=== PATIENT | male | born 1965 | race Hispanic/Latino ===

== ENCOUNTER 2017-09-30 14:18 | Inpatient (IN) | payer MEDICARE ==
[2017-09-30] MEDS ORDERED: Famotidine 20mg/50ml 20 MG/50 ML BAG IVPB STA (14:32)
--- NOTE | 2017-09-30 14:43 | ED PDOC ---
Arrival/HPI - General Time Seen by Provider: 09/30/17 14:19 Historian: Patient - History of Present Illness Narrative History of Present Illness (Text): 09/30/17 14:37 A 52 year old male, whose past medical history includes ETOH use and depression , presents to the emergency department with chest tightness and tremors. The patient admits that his last drink was yesterday and he states that he did want to harm himself and used a knife/razor to cut his neck. The patient notes his chest feels tight with a burning pain coming from the epigastric region into the chest with mild nausea. He is unsure if he hit his head or not. The patient denies any homicidal ideation, diarrhea, vomiting, or any other complaints at this time. Time/Duration: 24 hours Symptom Onset: Gradual Symptom Course: Other Quality: Tightness, Burning Activities at Onset: Emotional Upset Context: Home, Other Past Medical History - Provider Review Nursing Documentation Reviewed: Yes Family/Social History - Physician Review Nursing Documentation Reviewed: Yes Family/Social History: No Known Family HX Allergies/Home Meds Allergies/Adverse Reactions: Allergies No Known Allergies Allergy (Unverified 09/30/17 14:30) Home Medications: Home Meds Medication Instructions Recorded Confirmed No Known Home Med 09/30/17 09/30/17 Review of Systems - Physician Review All systems were reviewed & negative as marked: Yes - Review of Systems Cardiovascular: Chest Pain Gastrointestinal: Abdominal Pain (epigastric burning ), Nausea. absent: Diarrhea, Vomiting Psychiatric: Depression, Suicidal Ideation Physical Exam Vital Signs Reviewed: Yes Vital Signs Temp Pulse Resp BP Pulse Ox 09/30/17 16:12 105 H 17 125/73 95 09/30/17 15:06 97.9 F 111 H 18 90/50 L 95 Appearance: Positive for: Other (ETOH on breath/slurred speech) - Systems Exam Head: Present: Atraumatic, Normocephalic Pupils: Present: PERRL Extroacular Muscles: Present: EOMI Conjunctiva: Present: Normal Mouth: Present: Moist Mucous Membranes Neck: Present: Normal Range of Motion, Other (razor harry with dry red blood no lacerations or swelling/hemotoma ) Respiratory/Chest: Present: Clear to Auscultation, Good Air Exchange. No: Respiratory Distress, Accessory Muscle Use Cardiovascular: Present: Regular Rate and Rhythm, Normal S1, S2. No: Murmurs Abdomen: Present: Tenderness (epigastric tenderness ), Normal Bowel Sounds. No : Distention, Peritoneal Signs Back: Present: Normal Inspection Upper Extremity: Present: Normal Inspection. No: Cyanosis, Edema Lower Extremity: Present: Normal Inspection. No: Edema Neurological: Present: GCS=15, CN II-XII Intact, Speech Normal Skin: Present: Warm, Dry, Normal Color. No: Rashes Psychiatric: Present: Alert, Oriented x 3, Normal Insight, Normal Concentration Medical Decision Making ED Course and Treatment: 09/30/17 14:53 Impression: A 52 year old male with epigastric pain and suicidal ideation. Differential Diagnosis included but are not limited to: Alcohol Gastritis/ Reflux, Suicidal Ideation with Attempt Plan: -- Head CT -- EKG -- Labs -- Chest X-ray -- Ativan, Zofran, Pepcid, TDap -- Fingerstick -- Reassess and disposition Progress Notes: EKG: Ordered, reviewed, and independently interpreted the EKG. Rate : 112 BPM Rhythm : Sinus Tachycardia Interpretation : No ST-segment elevations or depressions, no T-wave inversions, normal intervals. Comparison : No previous EKG for comparison. 09/30/17 16:23 CXR normal and NAD. Hypokalemia treated with PO potassium. Patient is medically cleared for psych evaluation and possible admission. 09/30/17 18:13 PROCEDURE: CT HEAD WITHOUT CONTRAST. IMPRESSION: No acute intracranial abnormalities. No significant findings to account for the clinical presentation. 09/30/17 18:41 Case was discussed with PES who will admit patient to Dr. Christine Mosqueda for Suicidal ideation/attempt, MDD and Alcohol dependence. WINGWA ordered. - Lab Interpretations Lab Results: 09/30/17 15:00 09/30/17 15:00 Lab Results 09/30/17 15:30: Alcohol, Quantitative 266 H 09/30/17 15:30: Salicylates < 1 L, Acetaminophen < 10.0 L 09/30/17 15:08: POC Glucose (mg/dL) 107 09/30/17 15:00: Sodium 150 H, Potassium 3.4 L, Chloride 108 H, Carbon Dioxide 27 , Anion Gap 18, BUN 15, Creatinine 0.6 L, Est GFR ( Amer) > 60, Est GFR ( Non-Af Amer) > 60, Random Glucose 117 H, Calcium 10.1, Magnesium 1.8, Total Bilirubin 0.2, AST 38, ALT 35, Alkaline Phosphatase 47, Lactate Dehydrogenase 485, Total Creatine Kinase 149, Troponin I < 0.01, Total Protein 7.1, Albumin 4.1, Globulin 3.0, Albumin/Globulin Ratio 1.4, Lipase 66 09/30/17 15:00: WBC 8.9, RBC 4.60, Hgb 14.7, Hct 43.0, MCV 93.5, MCH 32.0, MCHC 34.2, RDW 14.3, Plt Count 402, MPV 9.3, Gran % 58.6, Lymph % (Auto) 33.8, [place] % (Auto) 6.0, Eos % (Auto) 1.5, Baso % (Auto) 0.1, Gran # 5.19, Lymph # (Auto) 3.0, [place] # (Auto) 0.5, Eos # (Auto) 0.1, Baso # (Auto) 0.01 - RAD Interpretation Radiology Orders: 09/30/17 14:31 CHEST PORTABLE [RAD] Stat 09/30/17 14:49 HEAD W/O CONTRAST [CT] Stat - Medication Orders Current Medication Orders: Discontinued Medications Famotidine (Pepcid 20mg/50ml Premix) 20 mg in 50 mls @ 100 mls/hr IVPB STAT STA Stop: 09/30/17 15:01 Last Admin: 09/30/17 15:10 Dose: 100 mls/hr eMAR Start Stop Document 09/30/17 15:10 ROZINA (Rec: 09/30/17 15:13 ROZINA [id number]) Intravenous Solution Start Date 09/30/17 Start Time 15:10 End Date 09/30/17 End time 15:40 Total Infusion Time 30 Multivitamins/Vitamin C 10 ml/Thiamine HCl 100 mg/ Folic Acid 1 mg/ Dextrose 1, 011.2 mls @ 1,000 mls/hr IV .Q1H1M ONE Stop: 09/30/17 17:24 Last Admin: 09/30/17 17:27 Dose: 1,000 mls/hr eMAR Start Stop Document 09/30/17 17:27 ROZINA (Rec: 09/30/17 17:29 ROZINA [id number]) Intravenous Solution Start Date 09/30/17 Start Time 17:29 End Date 09/30/17 End time 18:29 Total Infusion Time 60 Sodium Chloride (Sodium Chloride 0.9%) 1,000 mls @ 999 mls/hr IV .Q1H1M STA Stop: 09/30/17 17:24 Last Admin: 09/30/17 16:32 Dose: 999 mls/hr eMAR Start Stop Document 09/30/17 16:32 ROZINA (Rec: 09/30/17 16:35 ROZINA [id number]) Intravenous Solution Start Date 09/30/17 Start Time 16:35 End Date 09/30/17 End time 17:35 Total Infusion Time 60 Lorazepam (Ativan) 1 mg IVP ONCE ONE PRN Reason: Protocol Stop: 09/30/17 14:33 Last Admin: 09/30/17 15:14 Dose: 1 mg IVP Administration Document 09/30/17 15:14 ROZINA (Rec: 09/30/17 15:14 ROZINA [id number]) Charges for Administration # of IVP Administrations 1 Ondansetron HCl (Zofran Inj) 4 mg IVP STAT STA Stop: 09/30/17 14:33 Last Admin: 09/30/17 15:13 Dose: 4 mg IVP Administration Document 09/30/17 15:13 ROZINA (Rec: 09/30/17 15:13 ROZINA [id number]) Charges for Administration # of IVP Administrations 1 Potassium Chloride (K-Dur 20 Meq Er Tab) 40 meq PO STAT STA Stop: 09/30/17 15:55 Last Admin: 09/30/17 16:21 Dose: 40 meq Tetanus/Reduced Diphtheria/Acell Pertussis (Boostrix Vaccine Inj) 0.5 ml IM .ONCE ONE Stop: 09/30/17 14:50 Last Admin: 09/30/17 16:20 Dose: 0.5 ml MAR Immunization Data Document 09/30/17 16:20 LA (Rec: 09/30/17 16:20 LA [id number]) Immunization Data Vaccine Information Sheet Given Yes Immunization Registry Document 09/30/17 16:20 LA (Rec: 09/30/17 16:20 SHARON [id number]) Immunization Registry Consent Date 05/13/17 - Scribe Statement The provider has reviewed the documentation as recorded by the Oscaribtera Rosario Provider Scribe Attestation: All medical record entries made by the Scribe were at my direction and personally dictated by me. I have reviewed the chart and agree that the record accurately reflects my personal performance of the history, physical exam, medical decision making, and the department course for this patient. I have also personally directed, reviewed, and agree with the discharge instructions and disposition. Disposition/Present on Arrival - Present on Arrival Any Indicators Present on Arrival: No - Disposition Have Diagnosis and Disposition been Completed?: Yes Diagnosis: Suicide attempt, Alcohol dependence Disposition Time: 18:42 Patient Plan: Admission Condition: GUARDED Referrals: PCP,NO [Primary Care Provider] - Follow up with primary
[2017-09-30] MEDS ORDERED: TDAP Vaccine 0.5 mL Syr IM ONE (14:49)
[2017-09-30 15:07] VITALS: O2SAT 95
--- NOTE | 2017-09-30 15:27 | RAD ---
HISTORY: chest pain COMPARISON: No prior. FINDINGS: LUNGS: No active pulmonary disease. PLEURA: No significant pleural effusion identified, no pneumothorax apparent. CARDIOVASCULAR: Normal. OSSEOUS STRUCTURES: No significant abnormalities. VISUALIZED UPPER ABDOMEN: Normal. OTHER FINDINGS: None. IMPRESSION: No active disease.
[2017-09-30 15:41] LABS: BASO # 0.01 K/mm3 (0.0-2.0); BASO % 0.1 % (0.0-3.0); EOS # 0.1 (0.0-0.7); EOS % 1.5 % (1.5-5.0); GRAN # 5.19 (1.4-6.5); GRAN % 58.6 % (50.0-68.0); HEMOGLOBIN 14.7 g/dL (14.0-18.0); LYMPH % 33.8 % (22.0-35.0); MEAN CELL VOLUME 93.5 fl (80.0-105.0); MEAN CORPUSCULAR HGB CONC 34.2 g/dl (31.0-37.0); MEAN PLATELET VOLUME 9.3 fl (7.0-11.0); MONO # 0.5 (0.1-0.6); RBC 4.6 10^6/uL (3.5-6.1); RED CELL DISTRIBUTION WIDTH 14.3 % (11.5-14.5); WHITE BLOOD COUNT 8.9 10^3/ul (4.5-11.0)
[2017-09-30 15:49] LABS: ALB/GLOB RATIO 1.4 (1.1-1.8); ALBUMIN 4.1 g/dL (3.0-4.8); ALT/SGPT 35 U/L (7-56); AST/SGOT 38 U/L (17-59); BLOOD UREA NITROGEN 15 mg/dL (7-21); CALCIUM 10.1 mg/dL (8.4-10.5); GFR AFRICAN-AMERICAN > 60; GFR NON-AFRICAN AMERICAN > 60; LIPASE 66 U/L (23-300)
[2017-09-30] MEDS ORDERED: Potassium Chloride 20 mEq ER Tab PO STA (15:54)
[2017-09-30 16:00] LABS: TROPONIN I < 0.01 ng/mL
[2017-09-30] MEDS ORDERED: Sodium Chloride 0.9% 1,000 ML IV STA (16:24)
[2017-09-30] MEDS ORDERED: Multivitamin (MVI) 10 ML, Thiamine 100 MG, Folic Acid 1 MG in Dextrose 5% In Water 1,00... IV ONE (16:24)
[2017-09-30 16:43] LABS: ACETAMINOPHEN < 10.0 ug/ml (10.0-20.0); SALICYLATE < 1 mg/dL (2.0-20.0)
--- NOTE | 2017-09-30 17:35 | CT ---
PROCEDURE: CT HEAD WITHOUT CONTRAST. HISTORY: poss head injury r/o ich COMPARISON: None available. TECHNIQUE: Axial computed tomography images were obtained through the head/brain without intravenous contrast. Radiation dose: Total exam DLP = 704.06 mGy-cm. This CT exam was performed using one or more of the following dose reduction techniques: Automated exposure control, adjustment of the mA and/or kV according to patient size, and/or use of iterative reconstruction technique. FINDINGS: HEMORRHAGE: No intracranial hemorrhage. BRAIN: No mass effect or edema. No atrophy or chronic microvascular ischemic changes. VENTRICLES: Moderate ventricular dilatation without obstructing lesion. CALVARIUM: Unremarkable. PARANASAL SINUSES: Unremarkable as visualized. No significant inflammatory changes. MASTOID AIR CELLS: Unremarkable as visualized. No inflammatory changes. OTHER FINDINGS: None. IMPRESSION: No acute intracranial abnormalities. No significant findings to account for the clinical presentation.
[2017-09-30] MEDS ORDERED: Magnesium Hydroxide Susp 30 ml UD PO PRN (20:43)
[2017-09-30] MEDS ORDERED: Alum-Mag Hydrox-Simethicone Susp (30 mL) PO PRN (20:43)
--- NOTE | 2017-10-01 05:17 | PCM.BM ---
<Duarte Parsons O - Last Filed: 10/01/17 05:15> Treatment Plan Problems - Problems identified on initial assessmt Sad mood Date Initiated: 09/30/17 Time Initiated: 22:00 Assessment reference: NA Status: Active Priority: 1 Treatment assets and liabiliti Patient Assests: cooperative, ADL independent, physically healthy, good past tx response Patient Liabilities: live alone, substance abuse - Milieu Protocol Maintain good personal hygiene: daily Encourage regular showers, daily Remind patient to perform daily oral care, daily Assist patient to perform ADL's Maintain personal safety: daily Educate patient to report safety concerns to staff, daily Monitor environment for contraband/sharps Medication safety: Monitor for expected outcome, potential side effects: daily, Assess barriers to learning: daily, Assess readiness for medication education: daily Family Contact Family involvement: Patient does not wish Family/SO involvement Family contact: Patient agrees to contact - Goals for Treatment Patient goals for treatment: To feel better Discharge/Continuing Care - Education Needs Education Needs: Patient Medication, Patient Diagnosis/Disease Process, Patient Coping Skills - Discharge Discharge Criteria: Free of Suicidal thoughts <Christine Mosqueda A - Last Filed: 10/01/17 09:02> - Diagnosis (1) Alcohol use disorder Status: Acute Interventions: 10/01/17 09:02 Monitoring withdrawal symptoms Medical detoxification Pharmacotherapy for alcohol/benzos/opioid dependence Maintaining sobriety Relapse prevention Possible rehabilitation Motivational interviewing 12-step programs: AA meetings (2) MDD (major depressive disorder) Status: Acute Interventions: 10/01/17 09:02 Psychoeducation Psychopharmacology/adjustment of medications as needed/ monitoring possible side effects Evaluate pt on daily basis Compliance with medications and follow up appointments Suicide and homicide risk assessment and prevention Relapse prevention Reduction of symptoms Improve functional status Family involvement As outpatient: cognitive behavioral therapy
[2017-10-01 07:51] VITALS: RESP 20
[2017-10-01 08:24] LABS: GLUCOSE,FASTING 98 mg/dL (65-110); HDL CHOLESTEROL 60 mg/dL (29-60)
[2017-10-01 08:35] LABS: LDL CHOLESTEROL 67 mg/dL (0-129)
[2017-10-01] MEDS: Multivitamin Therapeutic Tab PO SCH (08:51)
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
--- NOTE | 2017-10-01 15:06 | CARD ---
APPROVED REPORT EKG Measurement Heart [id number] <Conclusion> Sinus tachycardia Otherwise normal ECG
[2017-10-02 07:35] VITALS: BP 113/64; PULSE 114; TEMP 98.7
[2017-10-02 09:39] LABS: BASO # 0.01 K/mm3 (0.0-2.0); BASO % 0.1 % (0.0-3.0); EOS % 0.1 % (1.5-5.0); GRAN # 10.62 (1.4-6.5); GRAN % 91.4 % (50.0-68.0); HEMOGLOBIN 15.3 g/dL (14.0-18.0); LYMPH # 0.7 (1.2-3.4); LYMPH % 6.3 % (22.0-35.0); MEAN CELL VOLUME 91.1 fl (80.0-105.0); MEAN CORPUSCULAR HEMOGLOBIN 32.3 pg (25.0-35.0); MEAN CORPUSCULAR HGB CONC 35.4 g/dl (31.0-37.0); MEAN PLATELET VOLUME 9.1 fl (7.0-11.0); MONO # 0.2 (0.1-0.6); MONO % 2.1 % (1.0-6.0); PLATELET COUNT 356 10^3/uL (120.0-450.0); RBC 4.74 10^6/uL (3.5-6.1); RED CELL DISTRIBUTION WIDTH 13.8 % (11.5-14.5); WHITE BLOOD COUNT 11.6 10^3/ul (4.5-11.0)
[2017-10-02] MEDS ORDERED: Pantoprazole 40 mg EC Tab PO SCH (09:45)
[2017-10-02 09:49] LABS: ALB/GLOB RATIO 1.4 (1.1-1.8); ALBUMIN 4.3 g/dL (3.0-4.8); ALT/SGPT 35 U/L (7-56); AST/SGOT 29 U/L (17-59); BLOOD UREA NITROGEN 14 mg/dL (7-21); CALCIUM 9.9 mg/dL (8.4-10.5); GFR AFRICAN-AMERICAN > 60; GFR NON-AFRICAN AMERICAN > 60
[2017-10-02 10:30] LABS: LYMPHOCYTE 7 % (22.0-35.0); MONOCYTE 1 % (1.0-6.0); NEUTROPHIL 92 % (50.0-70.0); PLATELET ESTIMATE NORMAL (NORMAL)
[2017-10-02] MEDS: Multivitamin Therapeutic Tab PO SCH (12:43)
--- NOTE | 2017-10-02 16:22 | PN ---
DATE: 10/02/2017 SUBJECTIVE: The patient is admitted in the Behavioral Care Unit under Dr. King, she is his psychiatrist. The patient had presented with epigastric discomfort, radiating into the left side of the chest. Evaluation by EKG, the patient did not have any acute myocardial infarction or ischemic event at that time. The patient was admitted to the Behavioral Care Unit for observation and treatment. The patient has a past history of chest pain, vomiting, eructation, reflux. The patient has a past history of gastritis. The patient has a history of depression. He also has history of suicidal tendency. On examination this morning, the patient is lying in bed. He complains of some discomfort in the left side of the chest and in the epigastric area. 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 His appendicular skeleton is comparatively short with short hands. PAST SURGICAL HISTORY: None. The patient has been treated for depression in the past. ALLERGIES: THE PATIENT HAS NO KNOWN ALLERGIES ACCORDING TO THE ER REPORT. PHYSICAL EXAMINATION: VITAL SIGNS: His pulse is 114, blood pressure is 113/64, respirations are 20, O2 sat is 95% of O2 on room air. HEENT: The patient's head is normocephalic. NECK: The thyroid is not enlarged. The neck is short. The JVP is flat. LUNGS: Trachea is central. Breath sounds are vesicular. No adventitious sounds. HEART: Normal sinus rhythm. S1 and S2 present. No murmurs heard. ABDOMEN: Soft. Liver and spleen not palpable. Tenderness in the epigastric area noted. The patient has no rebound tenderness. No masses. CENTRAL NERVOUS SYSTEM: The patient is conscious, rational, oriented. Answers all questions. The patient is one of five siblings. He is evaluated for possible myocardial ischemic event. EKG is ordered for the patient and patient done. MEDICATION LIST: Consists of Abilify. The patient is on lorazepam, which is Ativan . The patient is on thiamine, multivitamin, Remeron, pantoprazole, . The patient is also on Zofran for nausea and vomiting. LABORATORY DATA: The white count 11,600; differential shows a shift to the left. The patient's chemistry, the renal functions are within normal limits. The patient's sodium is 136. Albumin and globulin are within normal limits. AST, ALT are normal. The patient's TSH is 0.22, which is low. We will have to measure the T4 levels of this patient. In the mean time, the patient will be kept under observation. EKG will be done and the blood work will be done to look for any changes in the troponin levels. We will follow up very closely. The nurses are going to keep a close eye on the patient. He is still in the Behavioral Care Unit. I spoke to the physician in-charge in the Behavioral Care Unit and notified about the visit and that I will follow up on the case. Ellis Guzman MD
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
--- NOTE | 2017-10-02 19:23 | CARD ---
APPROVED REPORT EKG Measurement Heart [id number] <Conclusion> Sinus tachycardia Otherwise normal ECG
== END 2017-10-02 12:40 | disposition short-term general hospital (02) | DRG 885 ==
LOC: ED 14:18 → ERH 18:31 → PSYC 19:48
PROVIDERS: ADMIT Psychiatry & Neurology Psychiatry; ATTEND Psychiatry & Neurology Psychiatry
PROC: GZ3ZZZZ Medication Management (ICD-10-PCS; principal; 2017-09-30)
DX: F32.3 Major depressive disorder, single episode, severe with psychotic features (principal); R45.851 Suicidal ideations; F10.10 Alcohol abuse, uncomplicated; K21.9 Gastro-esophageal reflux disease without esophagitis; F17.210 Nicotine dependence, cigarettes, uncomplicated; Z81.8 Family history of other mental and behavioral disorders

== ENCOUNTER 2017-10-02 12:28 | Inpatient (IN) | payer MEDICARE ==
[2017-10-02 12:50] VITALS: BMI 33.6
[2017-10-02] MEDS ORDERED: Multivitamin (MVI) 10 ML, Thiamine 100 MG, Folic Acid 1 MG in Sodium Chloride 0.9% 1,00... IV ONE ×2 (12:52→16:46)
--- NOTE | 2017-10-02 12:55 | ED PDOC ---
Arrival/HPI - General Time Seen by Provider: 10/02/17 12:38 Historian: Patient - History of Present Illness Narrative History of Present Illness (Text): 10/02/17 12:40 Dashawn Montiel is a 52 year old male, whose past medical history includes ETOH use, depression, and was recently admitted to the psych floor 2 days ago, who presents to the emergency department sent from psych floor complaining of nausea and vomiting today. Patient notes that his last drink was 2 days ago. Patient sent to emergency department because he is being treated for nausea, vomiting, and alcoholic withdrawal to be admitted to the medical floor. Patient endorses that he smokes 1/2 a pack of cigarettes and drinks about 1/2 point of vodka per day. No other complaints offered at this time. Time/Duration: 4-6 hours Symptom Onset: Gradual Symptom Course: Unchanged Activities at Onset: Light Associated Symptoms (Text): 10/02/17 13:05 Seen in the emergency department 2 days ago for substance abuse and depression with a suicide attempt. Patient was admitted to the psychiatric floor yesterday. He was transferred from the psychiatric floor today for nausea vomiting and alcohol withdrawal for admission to a hospital bed. Past Medical History - Provider Review Nursing Documentation Reviewed: Yes - Infectious Disease Hx of Infectious Diseases: None - Cardiac Hx Cardiac Disorders: No Hx Hypertension: No - Pulmonary Hx Tuberculosis: No - Neurological HX Cerebrovascular Accident: No Hx Seizures: No - Hematological/Oncological Hx Cancer: No - Integumentary Hx Dermatological Disorder: No - Musculoskeletal/Rheumatological Hx Musculoskeletal Disorders: No - Gastrointestinal Hx Gastrointestinal Disorders: No - Genitourinary/Gynecological Hx Sexually Transmitted Diseases: No - Psychiatric Hx Depression: Yes Hx Substance Use: Yes - Anesthesia Hx Anesthesia: No Family/Social History - Physician Review Nursing Documentation Reviewed: Yes Family/Social History: Unknown Family HX Smoking Status: Light Smoker < 10 Cigarettes Daily Hx Alcohol Use: Yes Frequency of alcohol use: Daily Hx Substance Use: Yes Allergies/Home Meds Allergies/Adverse Reactions: Allergies No Known Allergies Allergy (Verified 10/02/17 12:59) Home Medications: Home Meds Medication Instructions Recorded Confirmed No Known Home Med 09/30/17 10/02/17 Review of Systems - Physician Review All systems were reviewed & negative as marked: Yes - Review of Systems Constitutional: absent: Fevers, Night Sweats Eyes: absent: Vision Changes ENT: absent: Hearing Changes Respiratory: absent: SOB, Cough Cardiovascular: absent: Chest Pain Gastrointestinal: Nausea, Vomiting. absent: Abdominal Pain Genitourinary Male: absent: Dysuria Musculoskeletal: absent: Arthralgias Skin: absent: Rash, Pruritis Neurological: absent: Headache Endocrine: absent: Diaphoresis Physical Exam Vital Signs Reviewed: Yes Vital Signs Temp Pulse Resp BP Pulse Ox 10/02/17 13:56 98.1 F 104 H 18 123/53 L 97 Temperature: Afebrile Blood Pressure: Normal Pulse: Regular Respiratory Rate: Normal Appearance: Positive for: Unkept, Other (dwarf, unkept, and foul-smelling) Pain Distress: None Mental Status: Positive for: Alert and Oriented X 3 - Systems Exam Head: Present: Atraumatic, Normocephalic Pupils: Present: PERRL Extroacular Muscles: Present: EOMI Conjunctiva: Present: Normal Mouth: Present: Moist Mucous Membranes Pharnyx: No: ERYTHEMA, EXUDATE, TONSILS ENLARGED Neck: Present: Normal Range of Motion Respiratory/Chest: Present: Decreased Breath Sounds (Lung sounds diminished). No: Tender to Palpation Cardiovascular: Present: Regular Rate and Rhythm, Normal S1, S2. No: Murmurs Abdomen: No: Tenderness, Distention, Peritoneal Signs, Rebound, Guarding Back: Present: Normal Inspection Upper Extremity: Present: Normal Inspection. No: Cyanosis, Edema Lower Extremity: Present: Normal Inspection. No: Edema Neurological: Present: GCS=15, CN II-XII Intact, Speech Normal, Motor Func Grossly Intact Skin: Present: Warm, Dry, Normal Color. No: Rashes Psychiatric: Present: Alert, Oriented x 3, Normal Insight, Normal Concentration , Depressed Mood, Suicidal Ideation Medical Decision Making ED Course and Treatment: 10/02/17 12:56 Impression: 52 year old male sent from psych floor complaining of nausea and vomiting today. Plan: -- EKG -- Chest X-ray -- Labs -- Zofran, Librium, and IV fluids -- Reassess and disposition Prior Visits: Notes and results from previous visits were reviewed. Patient was last seen in the emergency department on 09/30/17 for chest tightness and tremors. Patient was admitted to psychiatry for further evaluation. Progress Notes: 10/02/17 13:07 EKG shows normal sinus rhythm with a sinus arrhythmia rate approximately [address] or T-wave changes 10/02/17 14:[address] Oliveros, who is aware and accepts patient to service. - Lab Interpretations Lab Results: 10/02/17 13:35 10/02/17 13:35 Lab Results 10/02/17 13:35: Alcohol, Quantitative < 10 10/02/17 13:35: Sodium 135, Potassium 4.2, Chloride 100, Carbon Dioxide 23, Anion Gap 17, BUN 14, Creatinine 0.5 L, Est GFR ( Amer) > 60, Est GFR ( Non-Af Amer) > 60, Random Glucose 123 H, Calcium 9.6, Total Bilirubin 0.7, AST 36, ALT 36, Alkaline Phosphatase 44, Lactate Dehydrogenase 435, Total Creatine Kinase 55, Troponin I < 0.01, Total Protein 7.4, Albumin 4.3, Globulin 3.1, Albumin/Globulin Ratio 1.4, Lipase 21 L 10/02/17 13:35: WBC 12.0 H, RBC 4.91, Hgb 15.6, Hct 44.2, MCV 90.0, MCH 31.8, MCHC 35.3, RDW 14.1, Plt Count 391, MPV 9.8, Gran % 92.4 H, Lymph % (Auto) 5.5 L , [place] % (Auto) 2.1, Eos % (Auto) 0.0 L, Baso % (Auto) 0.0, Gran # 11.13 H, Lymph # (Auto) 0.7 L, [place] # (Auto) 0.3, Eos # (Auto) 0.0, Baso # (Auto) 0.00 I have reviewed the lab results: Yes - RAD Interpretation Radiology Orders: 10/02/17 12:51 CHEST PORTABLE [RAD] Stat Chest 1 view shows no infiltrate effusion or cardiomegaly. Reclaimer: Radiologist - Medication Orders Current Medication Orders: Multivitamins/Vitamin C 10 ml/Thiamine HCl 100 mg/ Folic Acid 1 mg/ Sodium Chloride 1,011.2 mls @ 100 mls/hr IV .Q10H7M ONE Stop: 10/02/17 22:58 Last Admin: 10/02/17 13:35 Dose: 100 mls/hr eMAR Start Stop Document 10/02/17 13:35 HI (Rec: 10/02/17 13:55 HI [id number]) Intravenous Solution Start Date 10/02/17 Start Time 13:35 Discontinued Medications Chlordiazepoxide (Librium) 25 mg PO STAT STA PRN Reason: Protocol Stop: 10/02/17 12:53 Last Admin: 10/02/17 13:35 Dose: 25 mg Ondansetron HCl (Zofran Inj) 4 mg IVP ONCE ONE Stop: 10/02/17 12:54 Last Admin: 10/02/17 13:35 Dose: 4 mg IVP Administration Document 10/02/17 13:35 HI (Rec: 10/02/17 13:54 [place] [id number]) Charges for Administration # of IVP Administrations 1 Disposition/Present on Arrival - Present on Arrival Any Indicators Present on Arrival: No History of DVT/PE: No History of Uncontrolled Diabetes: No Urinary Catheter: No History of Decub. Ulcer: No History Surgical Site Infection Following: None - Disposition Have Diagnosis and Disposition been Completed?: Yes Diagnosis: Suicide attempt, Alcohol use disorder, Alcohol dependence, MDD (major depressive disorder), Alcohol withdrawal, Nausea and vomiting Disposition: HOSPITALIZED Disposition Time: 14:26 Patient Plan: Observation, Telemetry Patient Problems: Current Active Problems Problem Status Onset Alcohol dependence Acute Alcohol use disorder Acute Alcohol withdrawal Acute MDD (major depressive disorder) Acute Nausea and vomiting Acute Suicide attempt Acute Condition: GOOD Referrals: PCP,NO [Primary Care Provider] - Follow up with primary
--- NOTE | 2017-10-02 13:19 | RAD ---
HISTORY: admit COMPARISON: 09/30/2017 FINDINGS: LUNGS: No active pulmonary disease. PLEURA: No significant pleural effusion identified, no pneumothorax apparent. CARDIOVASCULAR: Normal. OSSEOUS STRUCTURES: No significant abnormalities. VISUALIZED UPPER ABDOMEN: Normal. OTHER FINDINGS: None. IMPRESSION: No active disease.
[2017-10-02 13:52] LABS: GRAN # 11.13 (1.4-6.5); GRAN % 92.4 % (50.0-68.0); HEMOGLOBIN 15.6 g/dL (14.0-18.0); LYMPH # 0.7 (1.2-3.4); LYMPH % 5.5 % (22.0-35.0); MEAN CORPUSCULAR HEMOGLOBIN 31.8 pg (25.0-35.0); MEAN CORPUSCULAR HGB CONC 35.3 g/dl (31.0-37.0); MEAN PLATELET VOLUME 9.8 fl (7.0-11.0); MONO # 0.3 (0.1-0.6); MONO % 2.1 % (1.0-6.0); RBC 4.91 10^6/uL (3.5-6.1); RED CELL DISTRIBUTION WIDTH 14.1 % (11.5-14.5)
[2017-10-02 14:02] LABS: ALB/GLOB RATIO 1.4 (1.1-1.8); ALBUMIN 4.3 g/dL (3.0-4.8); ALT/SGPT 36 U/L (7-56); AST/SGOT 36 U/L (17-59); BLOOD UREA NITROGEN 14 mg/dL (7-21); CALCIUM 9.6 mg/dL (8.4-10.5); GFR AFRICAN-AMERICAN > 60; GFR NON-AFRICAN AMERICAN > 60; LIPASE 21 U/L (23-300)
[2017-10-02 14:12] LABS: TROPONIN I < 0.01 ng/mL
--- NOTE | 2017-10-02 17:13 | CP.PCM.PN ---
Subjective - Date & Time of Evaluation Date of Evaluation: 10/02/17 Time of Evaluation: 16:55 - Subjective Subjective: House doctor evaluation for chest pain Patient is 52yo M with past medical history of EtOH abuse and depression was sent down from psych to ED for nausea/vomiting. Patient is complaining of chest pain and is noted to be in sinus tachycardia. Other vitals are stable. Patient reports the chest pain is located on the L side of his chest and radiates to the R side. He denies numbness/tingling, fever/chills, nausea/vomiting, vision changes or headache. Troponin was <0.01 x 1. Patient was noted to have tremors. Ativan prn ordered for alcohol withdrawal. Will repeat troponin x 2. PMD was notified and requested for cardiology, Dr. Erwin to be consulted. Antoni Allen PGY2 Objective - Vital Signs/Intake and Output Vital Signs (last 24 hours): Temp Pulse Resp BP Pulse Ox 98.1 F 115 H 18 125/82 98 10/02/17 13:56 10/02/17 15:48 10/02/17 15:48 10/02/17 15:48 10/02/17 15:48 - Medications Medications: Current Medications Chlordiazepoxide (Librium) 25 mg PO Q6 EDGARDO PRN Reason: Protocol Famotidine (Pepcid) 40 mg PO [facility] Multivitamins/Vitamin C 10 ml/Thiamine HCl 100 mg/ Folic Acid 1 mg/ Sodium Chloride 1,011.2 mls @ 100 mls/hr IV .Q10H7M ONE Stop: 10/02/17 22:58 Last Admin: 10/02/17 13:35 Dose: 100 mls/hr Multivitamins/Vitamin C 10 ml/Thiamine HCl 100 mg/ Folic Acid 1 mg/ Sodium Chloride 1,011.2 mls @ 100 mls/hr IV .Q10H7M ONE Stop: 10/03/17 02:52 Lorazepam (Ativan) 1 mg IVP Q6H PRN; Protocol PRN Reason: Agitation Ondansetron HCl (Zofran Inj) 4 mg IVP Q6 PRN PRN Reason: Nausea/Vomiting - Constitutional Appears: No Acute Distress - Head Exam Head Exam: ATRAUMATIC, NORMAL INSPECTION, NORMOCEPHALIC - Eye Exam Eye Exam: Normal appearance Pupil Exam: NORMAL ACCOMODATION, PERRL - ENT Exam ENT Exam: Mucous Membranes Moist - Neck Exam Neck Exam: Full ROM - Respiratory Exam Respiratory Exam: Clear to Ausculation Bilateral, NORMAL BREATHING PATTERN. absent: Rales, Rhonchi, Wheezes - Cardiovascular Exam Cardiovascular Exam: Tachycardia, REGULAR RHYTHM, +S1, +S2. absent: Rubs, Murmur - GI/Abdominal Exam GI & Abdominal Exam: Soft, Normal Bowel Sounds. absent: Tenderness, Mass, Rebound - Extremities Exam Extremities Exam: Full ROM, Normal Capillary Refill. absent: Pedal Edema, Tenderness Additional comments: tremulous in hands - Neurological Exam Neurological Exam: Alert, Awake, CN II-XII Intact, Oriented x3 - Psychiatric Exam Psychiatric exam: Normal Affect, Normal Mood - Skin Skin Exam: Dry, Intact, Warm
[2017-10-02] MEDS ORDERED: Metoprolol 1 mg/ml Inj IVP ONE (17:24)
--- NOTE | 2017-10-02 19:22 | CARD ---
APPROVED REPORT EKG Measurement Heart [id number] <Conclusion> Sinus rhythm with sinus arrhythmia Minimal voltage criteria for LVH, may be normal variant Borderline ECG
--- NOTE | 2017-10-03 01:20 | CP.PCM.PN ---
Subjective - Date & Time of Evaluation Date of Evaluation: 10/03/17 Time of Evaluation: 01:17 - Subjective Subjective: DRAFT Seen earlier , he wanted to sign out AMA. At that time I discussed with and then with Christine Pena. He is on 1:1 watch. Not to be allowed leave. Now at 1:10 AM, he got up from bed, wants to leave. Patient seen at bedside again. Has ativan 1 mg IV due, I have ordered ativan 2 mg IV x1 and 4 point soft restrains prn. Medical record was reviewed earlier. This 52 year old male was admitted to floor earlier in the day time via ER from psych floor for nausea, vomiting, ETOH withdrawal. Has history of depression,suicidal attempt, smoking, ETOH, high BMI. draft---- Objective - Vital Signs/Intake and Output Vital Signs (last 24 hours): Temp Pulse Resp BP Pulse Ox 98.0 F 92 H 21 136/104 H 98 10/03/17 00:01 10/03/17 00:01 10/03/17 00:01 10/03/17 00:01 10/02/17 15:48 - Medications Medications: Current Medications Chlordiazepoxide (Librium) 25 mg PO Q6 EDGARDO PRN Reason: Protocol Last Admin: 10/03/17 00:44 Dose: 25 mg Famotidine (Pepcid) 40 mg PO HS EDGARDO Last Admin: 10/02/17 23:39 Dose: Not Given Multivitamins/Vitamin C 10 ml/Thiamine HCl 100 mg/ Folic Acid 1 mg/ Sodium Chloride 1,011.2 mls @ 100 mls/hr IV .Q10H7M ONE Stop: 10/03/17 02:52 Last Admin: 10/02/17 18:58 Dose: Not Given Lorazepam (Ativan) 1 mg IVP Q6H PRN; Protocol PRN Reason: Agitation Last Admin: 10/02/17 17:13 Dose: 1 mg Lorazepam (Ativan) 2 mg IVP ONCE ONE PRN Reason: Protocol Stop: 10/03/17 01:17 Metoprolol Tartrate (Lopressor) 25 mg PO BID EDGARDO Ondansetron HCl (Zofran Inj) 4 mg IVP Q6 PRN PRN Reason: Nausea/Vomiting - Constitutional Appears: Well, No Acute Distress - Head Exam Head Exam: ATRAUMATIC, NORMAL INSPECTION, NORMOCEPHALIC Additional comments: short person. - Eye Exam Eye Exam: Normal appearance - ENT Exam ENT Exam: Normal External Ear Exam - Neck Exam Neck Exam: Normal Inspection - Respiratory Exam Respiratory Exam: NORMAL BREATHING PATTERN - Cardiovascular Exam Cardiovascular Exam: absent: JVD - GI/Abdominal Exam GI & Abdominal Exam: absent: Distended - Rectal Exam Rectal Exam: Deferred - Exam Additional comments: Deferred. - Extremities Exam Extremities Exam: Normal Inspection - Back Exam Back Exam: NORMAL INSPECTION - Neurological Exam Neurological Exam: Alert, Awake, Oriented x3 - Psychiatric Exam Psychiatric exam: Agitated - Skin Skin Exam: Normal Color Assessment and Plan - Assessment and Plan (Free Text) Assessment: Agitation. Nause,Vomiting. Depression. Alcohol withdrawal. Suicidal attempt history.
[2017-10-03 01:21] LABS: IRON 56 ug/dL (45-180)
[2017-10-03 01:31] LABS: % IRON SATURATION 17 % (20-55); TOTAL IRON BINDING CAPACITY 339 ug/dL (261-462)
[2017-10-03 01:34] LABS: TROPONIN I < 0.01 ng/mL
--- NOTE | 2017-10-03 02:46 | CON ---
DATE: 10/02/2017 REASON FOR CONSULTATION: Cardiac evaluation, chest pain, sinus tachycardia. BRIEF CLINICAL HISTORY: This is a 52-year-old male with past medical history of heavy alcohol abuse and tobacco abuse, came to the emergency room and admitted to the Psych Floor with depression. Patient was complaining of some chest discomfort, epigastric pain, so patient was sent to the ER and admitted to the Telemetry with chest pain. Patient complained of chest pain for two months all the time, does not get worse, no aggravating or relieving factor noted. Mostly, the epigastric pain radiated to the chest. PAST MEDICAL HISTORY: Significant for depression, dwarfism, and achondroplasia. Appendicular skeleton is comparatively short and short hands and short legs. SOCIAL HISTORY: He used to drink half a pint of vodka everyday, most recent drink was five days ago before coming to the hospital three to four days ago. Also smokes half a pack a day. FAMILY HISTORY: Significant for coronary artery disease. Father and mother had OR and . CURRENT MEDICATIONS: Patient not taking any medication at home. Currently, patient is on lorazepam, Librium, IV fluid. REVIEW OF SYSTEMS: As per HPI. PHYSICAL EXAMINATION: As follows, VITAL SIGNS: Temperature afebrile, heart rate 130, blood pressure 145/110. HEENT: PERRLA. Extraocular muscles intact. NECK: Supple. No carotid bruit or thyromegaly. CHEST: Clear to auscultation. HEART: S1, S2, regular. ABDOMEN: Soft. EXTREMITIES: Clubbing and cyanosis negative. LABORATORY DATA: EKG shows sinus tachycardia, no acute ST-T changes noted. Blood workup as follows. WBC 12, hemoglobin 15.0, hematocrit 44.2, platelet count 391. Chemistry shows sodium 135, potassium 4.2, chloride 108, carbon dioxide 20, anion gap of 17, BUN 14, creatinine 0.5. Troponin x2 negative. IMPRESSION: Atypical chest pain most likely secondary to gastritis secondary to alcohol related, history of heavy alcohol abuse, admitting blood alcohol level 266, tobacco abuse, also family history of coronary artery disease. Given the patient's lifestyle and multiple risk factors for coronary artery including family history to suggest, when the patient becomes sober, a stress test before the patient goes home, and we will get lipid profile, TSH and hemoglobin A1c, followup CPK, troponin, and also start beta rush. We will follow with you. Thank you Dr. Oliveros for providing us the opportunity in taking care of the patient, Dashawn Montiel. Katie Ozuna MD
[2017-10-03 06:33] LABS: BASO # 0.01 K/mm3 (0.0-2.0); BASO % 0.1 % (0.0-3.0); EOS # 0.1 (0.0-0.7); EOS % 1.2 % (1.5-5.0); GRAN # 4.63 (1.4-6.5); GRAN % 56.2 % (50.0-68.0); HEMOGLOBIN 13.9 g/dL (14.0-18.0); LYMPH # 2.8 (1.2-3.4); LYMPH % 33.5 % (22.0-35.0); MEAN CELL VOLUME 92.4 fl (80.0-105.0); MEAN CORPUSCULAR HEMOGLOBIN 31.2 pg (25.0-35.0); MEAN CORPUSCULAR HGB CONC 33.7 g/dl (31.0-37.0); MEAN PLATELET VOLUME 9.2 fl (7.0-11.0); MONO # 0.7 (0.1-0.6); RBC 4.46 10^6/uL (3.5-6.1); WHITE BLOOD COUNT 8.2 10^3/ul (4.5-11.0)
--- NOTE | 2017-10-03 06:49 | HP ---
CHIEF COMPLAINTS: Nausea, vomiting. HISTORY OF PRESENT ILLNESS: Mr. Dashawn Montiel is a 52-year-old male with past medical history of ethanol abuse, depression, was recently admitted to the Psych floor [address] Christine Mosqueda with depression and alcohol abuse, who presented to the emergency department, sent from Psych floor, complaining of nausea and vomiting. Patient noticed that his last drink was 2 days ago. Patient was sent to the emergency department because he is being treated for nausea and vomiting and alcohol withdrawal, now wanted to be admitted on medical floor. Patient endorsed that he smokes half a pack of cigarettes and drinks about half pint of vodka every day. No other complaints offered by the patient. Sometimes, feeling of gassy stomach, GERD, dyspepsia. Patient was seen in the emergency room 2 days ago for substance abuse and depression with suicidal attempt. Patient was admitted to the psychiatric floor yesterday. He was transferred from the Psych floor to the emergency room for nausea and vomiting and alcohol withdrawal, sent from emergency room to the medical floor. PAST MEDICAL HISTORY: Depression, substance abuse. FAMILY HISTORY: Father and mother, noncontributory. HABITS: Smoking, less than 10 cigarettes a day. Alcohol, yes. Substance abuse, yes. ALLERGIES: PATIENT IS NOT ALLERGIC WITH ANY MEDICATIONS. HOME MEDICATIONS: Patient did not remember. REVIEW OF SYSTEMS: The patient was seen and examined at the bedside in his room. He is on one-to-one. No fever. No chills. No night sweats. No vision changes. No hearing changes. No shortness of breath or coughing. No chest pain. Complaining about nausea, vomiting and gassy stomach, but no abdominal pain. No dysuria. No arthralgia. No pruritus. No headache. No diaphoresis. PHYSICAL EXAMINATION: VITAL SIGNS: Temperature 98.1, pulse 104, respiratory rate 18, blood pressure 120 /56. Pulse oximetry is 97%. HEENT: Head normocephalic, atraumatic. Eyes: PERRLA. Extraocular muscles intact. Conjunctivae clear. Nose, patent. NECK: Supple. No carotid bruit. No JVD. No thyromegaly. CHEST: Bilaterally symmetrical. HEART: S1, S2 positive. LUNGS: Clear to auscultation. ABDOMEN: Soft. Bowel sounds present. No organomegaly. EXTREMITIES: No edema. No cyanosis. NEUROLOGIC: Patient is awake, alert. Moving all 4 extremities. No focal deficits. LABORATORY DATA: White blood cells 12, hemoglobin 15.2, hematocrit 44.2, platelets 351. Sodium 135, potassium 4.2, BUN 14, creatinine 0.5, and glucose 123. ASSESSMENT AND PLAN: Mr. Dashawn Montiel is a 52-year-old male with leukocytosis, hyperglycemia, was admitted in the Psych floor for suicidal attempts, alcohol abuse, alcohol dependency, major depressive disorder, alcohol withdrawals, now has nausea, vomiting, gastroesophageal reflux disease, and dyspepsia. Patient is admitted. Psych consult called with Dr. Christine Mosqueda. Patient is on one-to-one because of suicidal attempts. We will start banana bag and Librium given in the emergency room. Gastric and deep venous thrombosis prophylaxes. Repeat labs. Scarlett Oliveros MD MTDD
[2017-10-03 06:55] LABS: TROPONIN I < 0.01 ng/mL
[2017-10-03 07:05] LABS: LDL CHOLESTEROL 73 mg/dL (0-129)
[2017-10-03 07:07] LABS: ALB/GLOB RATIO 1.3 (1.1-1.8); ALBUMIN 3.9 g/dL (3.0-4.8); ALT/SGPT 28 U/L (7-56); AST/SGOT 28 U/L (17-59); BLOOD UREA NITROGEN 13 mg/dL (7-21); CALCIUM 9.6 mg/dL (8.4-10.5); GFR AFRICAN-AMERICAN > 60; GFR NON-AFRICAN AMERICAN > 60; HDL CHOLESTEROL 53 mg/dL (29-60)
--- NOTE | 2017-10-03 07:43 | CP.PCM.CON ---
<Bladimir Madrid - Last Filed: 10/03/17 10:53> History of Present Illness - History of Present Illness History of Present Illness: PGY4 Initial GI Consultation Dashawn Montiel is a 52 year old male w/ hx of ETOH use, depression, and was recently admitted to the psych floor 3 days ago. He was sent to the Er from psych for nausea and vomiting. He currently denies any abd pain. He has a hx of intermittent GERD, which is normally resolved with the use of TUMs or maalox. Patient notes that his last drink was 2 days ago. Patient sent to emergency department because he is being treated for nausea, vomiting, and possible alcoholic withdrawal to be admitted to the medical floor. He currently denies any abd pain, nausea, vomiting. Last Bm was yesterday without difficulty. Denies any weightloss, NSAID use. fever, chills or diaphoresis PMHX: ETOH use, depression, GERD PSHx: Denies Social hx:Patient endorses that he smokes 1/2 a pack of cigarettes and drinks about 1/2 point of vodka per day. Denies rj illicit drugs Endo hx: denies Family hx: reviewed; denies any hx of colon ca. Liver or pancreas CA ROS: 12 point ROS conducted, neg other than above Past Patient History - Infectious Disease Hx of Infectious Diseases: None - Past Social History Smoking Status: Current Some Days Smoker - CARDIAC Hx Cardiac Disorders: No Hx Angina: No Hx Cardia Arrhythmia: No Hx Circulatory Problems: No Hx Congestive Heart Failure: No Hx Heart Murmur: No Hx Heart Transplant: No Hx Hypercholesterolemia: No Hx Hypertension: No Hx Internal Defibrillator: No Hx Mitral Valve Prolapse: No Hx Pacemaker: No Hx Peripheral Edema: No Hx Peripheral Vascular Disease: No - PULMONARY Hx Tuberculosis: No - NEUROLOGICAL HX Cerebrovascular Accident: No Hx Seizures: No - HEMATOLOGICAL/ONCOLOGICAL Hx Cancer: No - INTEGUMENTARY Hx Dermatological Problems: No - MUSCULOSKELETAL/RHEUMATOLOGICAL Hx Falls: No - GASTROINTESTINAL Hx Gastrointestinal Disorders: No - GENITOURINARY/GYNECOLOGICAL Hx Sexually Transmitted Disorders: No - PSYCHIATRIC Hx Substance Use: Yes - SURGICAL HISTORY Hx Cardiac Catheterization: No Hx Coronary Stent: No - ANESTHESIA Hx Anesthesia: No Meds Allergies/Adverse Reactions: Allergies Allergy/AdvReac Type Severity Reaction Status Date / Time No Known Allergies Allergy Verified 10/02/17 12:59 - Medications Medications: Current Medications Chlordiazepoxide (Librium) 25 mg PO Q6 EDGARDO PRN Reason: Protocol Last Admin: 10/03/17 05:45 Dose: 25 mg Famotidine (Pepcid) 40 mg PO HS EDGARDO Last Admin: 10/02/17 23:39 Dose: Not Given Lorazepam (Ativan) 1 mg IVP Q6H PRN; Protocol PRN Reason: Agitation Last Admin: 10/03/17 07:01 Dose: 1 mg Metoprolol Tartrate (Lopressor) 25 mg PO BID EDGARDO Ondansetron HCl (Zofran Inj) 4 mg IVP Q6 PRN PRN Reason: Nausea/Vomiting Physical Exam - Constitutional Appears: Well, No Acute Distress - Head Exam Head Exam: ATRAUMATIC, NORMOCEPHALIC - Eye Exam Eye Exam: Normal appearance - ENT Exam ENT Exam: Mucous Membranes Moist, Normal Exam - Neck Exam Neck exam: Positive for: Normal Inspection - Respiratory Exam Respiratory Exam: Clear to Auscultation Bilateral, NORMAL BREATHING PATTERN. absent: Rales, Rhonchi, Wheezes, Respiratory Distress - Cardiovascular Exam Cardiovascular Exam: REGULAR RHYTHM, +S1, +S2 - GI/Abdominal Exam GI & Abdominal Exam: Normal Bowel Sounds, Soft. absent: Guarding, Organomegaly , Rebound, Rigid, Tenderness - Extremities Exam Extremities exam: Negative for: joint swelling, pedal edema - Neurological Exam Neurological exam: Alert, Oriented x3 - Psychiatric Exam Psychiatric exam: Normal Affect, Normal Mood - Skin Skin Exam: Dry, Intact, Normal Color, Warm Results - Vital Signs Recent Vital Signs: Last Vital Signs Temp 98.1 F 10/03/17 06:00 Pulse 86 10/03/17 06:00 Resp 20 10/03/17 06:00 BP 124/85 10/03/17 06:00 Pulse Ox 97 10/03/17 06:00 - Labs Result Diagrams: 10/03/17 06:20 10/03/17 06:20 Labs: Laboratory Results - last 24 hr 10/02/17 10/03/17 10/03/17 17:15 00:45 00:45 WBC RBC Hgb Hct MCV MCH MCHC RDW Plt Count MPV Gran % Lymph % (Auto) Blaine % (Auto) Eos % (Auto) Baso % (Auto) Gran # Lymph # (Auto) Blaine # (Auto) Eos # (Auto) Baso # (Auto) Sodium Potassium Chloride Carbon Dioxide Anion Gap BUN Creatinine Est GFR ( Amer) Est GFR (Non-Af Amer) Random Glucose Calcium Phosphorus Magnesium Iron 56 TIBC 339 % Saturation 17 L Total Bilirubin AST ALT Alkaline Phosphatase Lactate Dehydrogenase 375 Total Creatine Kinase 69 Troponin I < 0.01 < 0.01 Total Protein Albumin Globulin Albumin/Globulin Ratio Triglycerides Cholesterol LDL Cholesterol Direct HDL Cholesterol TSH 3rd Generation 10/03/17 10/03/17 10/03/17 06:20 06:20 06:20 WBC 8.2 D RBC 4.46 Hgb 13.9 L Hct 41.2 L MCV 92.4 MCH 31.2 MCHC 33.7 RDW 14.0 Plt Count 346 MPV 9.2 Gran % 56.2 Lymph % (Auto) 33.5 Blaine % (Auto) 9.0 H Eos % (Auto) 1.2 L Baso % (Auto) 0.1 Gran # 4.63 Lymph # (Auto) 2.8 Blaine # (Auto) 0.7 H Eos # (Auto) 0.1 Baso # (Auto) 0.01 Sodium 141 Potassium 4.0 Chloride 107 Carbon Dioxide 25 Anion Gap 13 BUN 13 Creatinine 0.7 L Est GFR ( Amer) > 60 Est GFR (Non-Af Amer) > 60 Random Glucose 98 Calcium 9.6 Phosphorus 2.6 Magnesium 2.0 Iron TIBC % Saturation Total Bilirubin 0.9 AST 28 ALT 28 Alkaline Phosphatase 43 Lactate Dehydrogenase 387 Total Creatine Kinase 76 Troponin I < 0.01 Total Protein 6.9 Albumin 3.9 Globulin 2.9 Albumin/Globulin Ratio 1.3 Triglycerides 66 Cholesterol 153 LDL Cholesterol Direct 73 HDL Cholesterol 53 TSH 3rd Generation 0.74 Assessment & Plan - Assessment and Plan (Free Text) Assessment: Dashawn Montiel is a 52M w/ hx of depression and alcohol abuse who presents to the ER from the Psych for vomiting and nausea. Nausea/Vomiting GERD Alcohol abuse and dependence Alcohol withdrawl Plan: -temi PRN -supportive care -Pepcid 40mg daily -continue IV fluids -Ativan as per withdrawl protocol -1:1 -discussed alcohol cessation -recommend Colonoscopy as oupt for screening will d/w Dr. Snider <Angel Snider - Last Filed: 10/03/17 19:37> Meds - Medications Medications: Current Medications Chlordiazepoxide (Librium) 25 mg PO Q6 EDGARDO PRN Reason: Protocol Last Admin: 10/03/17 17:23 Dose: 25 mg Famotidine (Pepcid) 40 mg PO HS [facility] Last Admin: 10/02/17 23:39 Dose: Not Given Lorazepam (Ativan) 1 mg IVP Q6H PRN; Protocol PRN Reason: Agitation Last Admin: 10/03/17 07:01 Dose: 1 mg Metoprolol Tartrate (Lopressor) 25 mg PO BID [facility] Last Admin: 10/03/17 17:22 Dose: 25 mg Ondansetron HCl (Zofran Inj) 4 mg IVP Q6 PRN PRN Reason: Nausea/Vomiting Results - Vital Signs Recent Vital Signs: Last Vital Signs Temp 97.9 F 10/03/17 18:00 Pulse 91 H 10/03/17 18:00 Resp 20 10/03/17 18:00 BP 116/71 10/03/17 18:00 Pulse Ox 97 10/03/17 18:00 - Labs Result Diagrams: 10/03/17 06:20 10/03/17 06:20 Attending/Attestation - Attestation I have personally seen and examined this patient.: Yes I have fully participated in the care of the patient.: Yes I have reviewed all pertinent clinical information: Yes Notes (Text): 10/03/17 19:36 52 year old male with h/o etoh abuse, a/w withdrawal. Nausea and vomiting improved. Recommend antiemetics as needed. Recommend PPI daily. Etoh cessation. Will sign off.
[2017-10-03 13:18] LABS: FOLATE > 20.0 ng/mL
--- NOTE | 2017-10-03 13:23 | PN ---
DATE: FOLLOWUP NOTE SUBJECTIVE: The patient was transferred from psychiatric inpatient unit on the medical floor because the patient was not able to tolerate food, was vomiting and was not feeling well. The patient also had alcohol withdrawal syndrome and this database report writer is following the patient on the medical side. As per night report, the patient was agitated. The patient wanted to leave the hospital against medical advice. This database report writer would like to emphasize the fact that the patient was suicidal and cut his neck superficially and this database report writer did not feel like the patient has a capacity to sign himself out. The patient was seen and examined today. The patient presented to be alert, ambulates. The patient is on one to one currently. The patient has episodes of confusion, encircling around the unit, needs constant redirection. The patient has good report with this database report writer. The patient was educated about his diagnosis and potential risk of leaving against medical advice. The patient agreed to comply and complete his treatment here. After medical stabilization, the patient is willing to go back to the psychiatric inpatient unit. Vital signs are stable. Temperature 98.1, pulse is 86, blood pressure 124/85, respirations 20, oxygen saturation is 97. The patient is on Librium 25 mg every 6 hours scheduled, Pepcid, lorazepam as needed, Lopressor, Zofran. The patient got Ativan IM as well as IV hydration yesterday. Labs reviewed. WBC cells were elevated yesterday, today it is trending down. Chemistry reviewed. AST and ALT within normal limits. Lipase is 12, which is low. Toxicology: Alcohol was less than 10. MENTAL STATUS EXAMINATION: The patient presented to be alert, but somewhat confused, intermittent eye contact. Poor hygiene. Speech was monotonic, low volume. Mood described as depressed and hopeless. Affect was constricted. Thought process concrete. Thought content, the patient denied visual, auditory or tactile hallucinations, but the patient has episodes of confusion, most likely is in delirium stage. The patient still reported feeling of hopelessness, contracted for safety. Insight and judgment limited. Impulses are not predictable. IMPRESSION: As per history, the patient has major depressive disorder, anxiety disorder, alcohol use disorder. The patient was transferred from the medical side for alcohol withdrawal delirium as well as nonstop vomiting. PLAN: Continue current medication. Continue current management. The patient is on one-to-one. The patient is not clear to go from the psychiatric standpoint. Gastroenterology saw this patient. Consultation reviewed. The patient will be seen by Dr. Oliveros and the patient's lungs congested that is why Dr. Jain need to be involved and Dr. Ozuna also is involved for cardiac problems. We will follow up and advise accordingly. Thank you very much for letting me participate in care of your patient. Christine Mosqueda MD
--- NOTE | 2017-10-04 05:39 | PN ---
DATE: SUBJECTIVE: The patient was seen and examined on the bedside, looking comfortable, but is on one-to-one, restless, wants to leave against medical advice. Discussion done with house physician. Psychiatrist is on the case. No fever, no chills. No nausea, vomiting or diarrhea. No headache, no dizziness. History of suicidal attempt, smoking, ethanol abuse, high BMI. The patient was admitted actually in the Psychiatric Department for alcoholic behavior, but he started nauseous and vomiting, and transferred to the medical floor. PHYSICAL EXAMINATION VITAL SIGNS: Temperature 98, pulse 92, respiratory rate 21, blood pressure 136/104, pulse oximetry 98. HEENT: Head normocephalic and atraumatic. Eyes, PERRLA. Extraocular muscles intact. Conjunctivae clear. Nose patent. Mucous membrane moist. NECK: Supple. No carotid bruit. No JVD or thyromegaly. CHEST: Bilaterally symmetrical. HEART: S1 and S2 positive. LUNGS: Clear to auscultation. ABDOMEN: Soft. Bowel sounds present. No organomegaly. EXTREMITIES: No edema. No cyanosis. NEUROLOGIC: Patient is awake, alert. Moving all four extremities. No focal deficit. MEDICATIONS: Librium, Pepcid, Ativan, Lopressor, Zofran. LABORATORY DATA: White blood cells 8.2, hemoglobin 13.9, hematocrit 41.2, platelets 346. Sodium 141, potassium 4, BUN 13, creatinine 0.7, glucose 98. ASSESSMENT AND PLAN: Mr. Dashawn Montiel is a 52-year-old male with a history of leukocytosis, improved, now has anemia, iron deficiency, history of ethanol abuse, depression, gastroesophageal reflux disease, dyspepsia, denies usage of nonsteroidal antiinflammatory drugs. Here with gastroenteritis, nausea and vomiting, alcohol abuse, and depression. The patient is on one-to-one. Psychiatry is on the case. Continue present treatment. Repeat labs. We will follow. Scarlett Oliveros MD
--- NOTE | 2017-10-04 07:06 | PN ---
DATE: 10/03/2017 REASON FOR CONSULTATION: Cardiac evaluation, chest pain, sinus tachycardia, alcohol abuse, and tobacco abuse. SUBJECTIVE: The patient denies any shortness of breath, or any palpitations. OBJECTIVE: GENERAL: Not in apparent distress. Patient in the corner of the room is smoking. VITAL SIGNS: Temperature afebrile, heart rate 86, blood pressure 124/85. HEENT: PERRLA, intact. NECK: Supple. No carotid bruit or thyromegaly. CHEST: Clear to auscultation. HEART: S1 and S2, regular. ABDOMEN: Soft. EXTREMITIES: Clubbing and cyanosis negative.. LABORATORY DATA: Blood workup as follows. WBC 8.8, hemoglobin 13.9, hematocrit 41.2, platelet count 346. Chemistry shows sodium 141, potassium 4, chloride 103, carbon dioxide 25, anion gap of 13. BUN 13, creatinine 0.7. Troponin 0.01, negative. IMPRESSION: No noticed, I think it is myocardial infarction. Noticed acute unstable angina, ischemia, tobacco abuse, alcohol abuse, possible alcohol withdrawal, chest pain most likely secondary to gastritis because of multiple risk factor for coronary artery disease. Suggest echo and a stress test. Continue beta-rush. Patient was tachycardic yesterday. Admitting blood alcohol level 266 secondary to alcoholic intoxication, but given multiple risk factors, once the patient is stabilized and become sober, will consider stress test possibly tomorrow. Though the chest pain does not appear to be cardiac and so far troponin's are negative, no evidence for acute myocardial infarction. We will keep n.p.o. after midnight for a stress test in the morning. Katie Ozuna MD
--- NOTE | 2017-10-04 14:50 | PN ---
DATE: 10/04/2017 REASON FOR CONSULTATION: Followup cardiac evaluation, chest pain, sinus tachycardia, alcohol abuse and tobacco abuse. SUBJECTIVE: The patient denies any chest pain, shortness of breath or any palpitation. He refused echo yesterday. He refused a stress test and echo today. PHYSICAL EXAMINATION: GENERAL: Not in apparent distress, one to one. VITAL SIGNS: Temperature afebrile, heart rate 76, blood pressure 117/75. HEENT: PERRLA. Extraocular muscles intact. NECK: Supple. No carotid bruit or thyromegaly. CHEST: Clear to auscultation. HEART: S1 and S2 regular. ABDOMEN: Soft. EXTREMITIES: Clubbing and cyanosis negative. LABORATORY DATA: Blood workup as follows: WBC 8.8, hemoglobin 13.9, hematocrit 41.2, platelet count 346. Chemistry shows sodium 141, potassium 4, chloride , carbon dioxide 25, anion gap of 13. BUN 13, creatinine 0.7. Troponin 0.01. IMPRESSION: No evidence of myocardial infarction. No evidence of ischemia. Alcohol abuse and tobacco abuse. Refused echo and refused stress test. The patient had sinus tachycardia on admission. He was started on Lopressor since the patient is fairly stable. Admitting blood alcohol level was 266 on admission to the Psych floor. RECOMMENDATION: Continue metoprolol. Resume diet. The patient refusing stress test and echo. Again, resume diet, cancel the stress test. The patient is cleared from Cardiology point of view to go back to Psychiatry if needed. We will put in physician nurse communication. The patient is cleared from Cardiology point of view to go to Psych floor. Katie Ozuna MD
--- NOTE | 2017-10-04 17:39 | CP.PCM.PN ---
<Coreen Hoffman - Last Filed: 10/04/17 17:36> Subjective - Date & Time of Evaluation Date of Evaluation: 10/04/17 Time of Evaluation: 11:30 - Subjective Subjective: Chief Complaint: AMS, ETOH withdrawal 52 yr male w/ history of dwarfism, ETOH abuse, depression, GERD, heavy smoker, & subsatance abuse. Admitted to pyschiatric unit on for substance abuse, depression, & suicide attempt. Pt then transfered to medical floor for nausea/vomiting and chest pain. Today, pt seen with 1:1 sitter, confused, and refusing to go for stress test. Pt is a poor historian at this time. Denies any headache, fever, chills, nausea, vomiting, chest pain, shortness of breath, or urinary symptoms. Objective - Vital Signs/Intake and Output Vital Signs (last 24 hours): Temp Pulse Resp BP Pulse Ox 97.8 F 103 H 18 154/65 H 95 10/04/17 05:45 10/04/17 09:09 10/04/17 05:45 10/04/17 09:09 10/04/17 05:45 - Medications Medications: Current Medications Chlordiazepoxide (Librium) 25 mg PO Q8 [facility] PRN Reason: Protocol Last Admin: 10/04/17 14:13 Dose: Not Given Famotidine (Pepcid) 40 mg PO [facility] Last Admin: 10/03/17 21:51 Dose: 40 mg Haloperidol Lactate (Haldol) 0.5 mg IVP Q6 PRN; Protocol PRN Reason: Agitation Lorazepam (Ativan) 0.5 mg IVP Q6 PRN; Protocol PRN Reason: Agitation Last Admin: 10/04/17 11:55 Dose: 0.5 mg Metoprolol Tartrate (Lopressor) 25 mg PO BID [facility] Last Admin: 10/04/17 09:09 Dose: 25 mg Nicotine (Nicoderm Cq) 1 patch TD DAILY [facility] Last Admin: 10/04/17 12:00 Dose: 1 patch Ondansetron HCl (Zofran Inj) 4 mg IVP Q6 PRN PRN Reason: Nausea/Vomiting Quetiapine Fumarate (Seroquel) 25 mg PO [facility] PRN Reason: Protocol - Constitutional Appears: Non-toxic, No Acute Distress - Head Exam Head Exam: ATRAUMATIC, NORMAL INSPECTION, NORMOCEPHALIC - Eye Exam Eye Exam: EOMI, Normal appearance, PERRL Pupil Exam: NORMAL ACCOMODATION, PERRL - ENT Exam ENT Exam: Mucous Membranes Dry - Neck Exam Neck Exam: Full ROM, Normal Inspection. absent: Lymphadenopathy - Respiratory Exam Respiratory Exam: Clear to Ausculation Bilateral, NORMAL BREATHING PATTERN - Cardiovascular Exam Cardiovascular Exam: REGULAR RHYTHM, +S1, +S2. absent: Murmur - GI/Abdominal Exam GI & Abdominal Exam: Soft, Normal Bowel Sounds. absent: Tenderness - Extremities Exam Additional comments: pt has dwarfism - Back Exam Back Exam: NORMAL INSPECTION - Neurological Exam Neurological Exam: Alert, Awake - Psychiatric Exam Psychiatric exam: Anxious - Skin Skin Exam: Dry, Intact, Normal Color, Warm Assessment and Plan (1) Chest pain, atypical Status: Acute (2) Alcohol dependence Status: Acute (3) Alcohol withdrawal Status: Acute (4) MDD (major depressive disorder) Status: Acute (5) Nausea and vomiting Status: Acute (6) Suicide attempt Status: Acute (7) Alcohol use disorder Status: Chronic (8) Leukocytosis Status: Acute (9) Hyperglycemia Status: Acute (10) Dehydration Status: Acute - Assessment and Plan (Free Text) Plan: 1:1 sitter. Tolerating diet. Stress test & ECHO refused by patient, cardiology signed off. Nicotine patch. GI signed off the case, f/u with outpatient colonscopy. VTE/GI prophlyaxis. Consults: Psych - Dr. Mosqueda Cardio - Dr. Erwin GI - Dr. Snider Reviewed: CXR = WNL ECG = BORDERLINE, SR w. SA, minimal voltage critera for LVH, may be normal variant <Scarlett Oliveros - Last Filed: 10/04/17 23:04> Subjective - Subjective Subjective: 52 yr male w/ history of dwarfism, ETOH abuse, depression, GERD, heavy smoker, & subsatance abuse. Admitted to pyschiatric unit on for substance abuse, depression, & suicide attempt. Pt then transfered to medical floor for nausea/vomiting and chest pain. Today, pt seen with 1:1 sitter, confused, and refusing to go for stress test. Pt is a poor historian at this time. Denies any headache, fever, chills, nausea, vomiting, chest pain, shortness of breath, or urinary symptoms.pt is seen and examined at bed side . looking comfortable , agreed all above , d/d with RN ONCOLOGY CLINICAL , will f/u Objective - Vital Signs/Intake and Output Vital Signs (last 24 hours): Temp Pulse Resp BP Pulse Ox 97.6 F 79 20 109/75 97 10/04/17 18:00 10/04/17 18:43 10/04/17 18:00 10/04/17 18:43 10/04/17 18:00 Intake and Output: 10/04/17 10/05/17 18:59 06:59 Intake Total 180 Balance 180 - Medications Medications: Current Medications Chlordiazepoxide (Librium) 25 mg PO Q8 [facility] PRN Reason: Protocol Last Admin: 10/04/17 21:07 Dose: 25 mg Famotidine (Pepcid) 40 mg PO HS [facility] Last Admin: 10/04/17 21:08 Dose: 40 mg Haloperidol Lactate (Haldol) 0.5 mg IVP Q6 PRN; Protocol PRN Reason: Agitation Lorazepam (Ativan) 0.5 mg IVP Q6 PRN; Protocol PRN Reason: Agitation Last Admin: 10/04/17 11:55 Dose: 0.5 mg Metoprolol Tartrate (Lopressor) 25 mg PO BID [facility] Last Admin: 10/04/17 18:43 Dose: 25 mg Nicotine (Nicoderm Cq) 1 patch TD DAILY [facility] Last Admin: 10/04/17 12:00 Dose: 1 patch Ondansetron HCl (Zofran Inj) 4 mg IVP Q6 PRN PRN Reason: Nausea/Vomiting Quetiapine Fumarate (Seroquel) 25 mg PO HS [facility] PRN Reason: Protocol Last Admin: 10/04/17 21:08 Dose: 25 mg
[2017-10-04 18:33] VITALS: RESP 20
--- NOTE | 2017-10-04 23:13 | CON ---
DATE: HISTORY OF PRESENT ILLNESS: The patient is a 52-year-old white male with a history of major depressive disorder, anxiety disorder, and severe alcohol use disorder, who was transferred from the Psychiatric Inpatient Unit to the medical floor because of delirium-like symptoms as well as inability to tolerate food, nausea, and vomiting. I reviewed Dr. Mosqueda's initial assessment and her followup note yesterday as well as nursing notes. I met with the patient at bedside. The patient was superficially cooperative with my introduction and request for interview. However, the patient was not oriented [facility] and that it was 05/04, the patient is aware that it was 2017. The patient recalls that he was transferred from the Psychiatric Unit to the medical floor, but cannot describe the circumstances of this transfer. He continues to admit depression and having suicidal thoughts; however, he does not have any plan. The patient is currently on a one-to-one as he does not have capacity to leave AMA as he was requesting. I reviewed Dr. Mosqueda's, the patient does not have the capacity to leave AMA as of today either. He is confused with poor focus and attention during the course of my conversation with him. The patient appears restless and this was confirmed by talking to nursing staff as well. The patient also reports to me that he has paranoia about people being after him and has hallucinations that voices tell him that people are going to kill him. The patient has not been agreeable with staff requests on the medical floor and has been difficult to redirect. He is actively hallucinating during the course of my interview with him, repeatedly asking for a laptop which he did not have when I entered to speak with him. His behavior is unpredictable and confused and psychotic. His insight and judgment are poor. Vital signs were reviewed by this provider and they are elevated. Labs reviewed by this provider. Relevant psychiatric medications include Librium 25 mg p.o. every 6 hours scheduled as well as Ativan 1 mg IV every 6 hours p.r.n. IMPRESSION: Alcohol withdrawal delirium; alcohol use disorder, severe; major depressive disorder, severe; anxiety disorder. RECOMMENDATIONS: I spoke with nursing and reviewed the patient's medications. The patient has been receiving Ativan and Librium while he was on the unit and according to records, the patient has received 5 doses of Librium 25 mg yesterday and 1 dose so far this morning and then the patient also received 1 mg of Ativan twice yesterday and once this morning. Although benzos are very beneficial for alcohol withdrawal symptoms, giving too many benzos can cause delirium and worsen the patient's orientation and behavior. I have decreased the patient's benzos so that he receives Librium 25 mg p.o. every 8 hours and Ativan 0.5 mg IV every 6 hours p.r.n. agitation. I have also started Seroquel 12.5 mg a.m. and 25 mg at bedtime to help the patient with his delusions as well as restlessness and very poor sleep as reported by nursing. If the patient requires IV medication for agitation, I have started a very low dose of Haldol 0.5 mg IV every 6 hours p.r.n. to be given with Ativan if necessary. Psychiatry will continue to follow up with the patient. Next followup will be on , 10/05/2017. Josemanuel Lockwood MD
[2017-10-05 05:28] VITALS: O2SAT 96
[2017-10-05 08:31] VITALS: BP 121/77; PULSE 79; TEMP 97.5
--- NOTE | 2017-10-05 09:56 | PN ---
DATE: FOLLOWUP NOTE SUBJECTIVE: In short, the patient is 52-year-old male, initially was admitted on the psych inpatient unit for evaluation of suicidal ideation. The patient cut his neck near superficially. The patient also was drinking alcohol. Within 24 hours, the patient started to vomit and the patient required to go to the emergency room, after that on the medical floor. The patient was followed up by Dr. Lockwood yesterday. Reports reviewed. Discussed with her in person. The patient was followed up today on the medical side. The patient appears to be confused. The patient thought that today is 10/20/2017. The patient feels that he is in [facility] ([facility] The patient does not remember the circumstances of his admission to the psychiatric inpatient unit and this principal technical writer in particular. The patient reported today at the morning time he was feeling depressed as well as had suicidal thoughts, but denied any intent or plan to kill himself. The patient also reported that he had a chest pain earlier and bowling floor manager recommended stress test for him today. The patient reported even though that he has appetite, he was not able to eat because of the chest pain and upset stomach. The patient reported that he is not hearing voices. Last time was about 3 days ago. As per one-to-one, the patient is not in any distress. The patient is calm, at times confused. No behavioral incidents. Vital signs are stable. Temperature 97.5, pulse is 79, blood pressure 121/77, respirations 20, oxygen saturation is 96. Medications reviewed. The patient is on Librium 25 mg p.o. every 6 hours scheduled, Pepcid, Haldol 0.5 mg IV push every 6 hours. I will discontinue that. The patient is on Ativan 1 mg IV push. Stat was given and was yesterday 0.5 mg IV push every 6 hours p.r.n. The patient is on metoprolol, Nicoderm, Zofran, Seroquel 12.5 mg daily and 25 mg at the nighttime. Labs reviewed, most recent from yesterday, seems to be within normal limits. MENTAL STATUS EXAMINATION: As this principal technical writer described above, the patient appears to be confused, does not remember this principal technical writer. Intermittent eye contact. Speech was underproductive. Mood described not so good. Affect was flat. Thought process concrete. Thought content, the patient reported to have suicidal thoughts earlier in the morning, but not during the interview. The patient still reported to be depressed. The patient needed to be medicated with lorazepam yesterday. Today, the patient is calmer. IMPRESSION: As per history, schizoaffective spectrum disorder versus schizophrenia. The patient has history of alcohol use disorder. Right now, alcohol withdrawal symptoms are subsiding. Vital signs are within normal limits. The patient needs to be continued on multivitamins, thiamine and folic acid. The patient is on Librium, which should be continued. The patient is on Seroquel, which should be continued. The patient is on one-to-one for suicidality. Continue current management. After medical stabilization, the patient needs to be transferred back to the psychiatric inpatient unit. The patient complained of chest pain. Client Advocate is involved. Stress test is scheduled. Discussed with Dr. Oliveros. Thank you very much for letting me participate in the care of your patient. Should you have any questions, give me a call back. Christine Mosqueda MD
--- NOTE | 2017-10-05 15:56 | PN ---
DATE: 10/05/2017 REASON FOR CONSULTATION: Followup cardiac evaluation, chest pain, sinus tachycardia, alcohol abuse, severe tobacco abuse on one to one observation. SUBJECTIVE: The patient denies any chest pain, denies any shortness of breath, denies any palpitations. He is not in apparent distress. Refused stress test and echo yesterday. PHYSICAL EXAMINATION: VITAL SIGNS: Temperature afebrile, heart rate 79, blood pressure 121/77. HEENT: PERRLA. Extraocular muscles intact. NECK: Supple. No carotid bruit or thyromegaly. CHEST: Clear to auscultation. HEART: S1 and S2 regular. ABDOMEN: Soft. EXTREMITIES: Clubbing and cyanosis negative. LABORATORY DATA: Blood workup as follows: WBC 8.2, hemoglobin 13.9, hematocrit 41.2, platelet count 346. Chemistry shows sodium 141, potassium 4.2, chloride 107, carbon dioxide 25, anion gap of 13, BUN 13, creatinine 0.7. Troponin 0.01 negative. IMPRESSION: the patient , history of tobacco abuse, history of alcohol abuse, gastritis, possibly pain from gastritis, so far no evidence of acute myocardial infarction, no evidence of acute coronary syndrome. Given multiple risk factors for coronary artery disease, echo and stress test suggested, the patient diffused. Plan is to treat medically, no further episodes of chest pain complaint, no episode of arrhythmia noted. Continue one to one per psych. The patient is cleared from Cardiology point of view to go to psych as needed. Continue metoprolol. If the patient changes mind, we will consider the stress test. Katie Ozuna MD
[2017-10-06] MEDS ORDERED: Multivitamin With Minerals Tab PO SCH (08:00)
== END 2017-10-05 15:05 | DRG 897 ==
LOC: ED 12:28 → ERH 14:24 → 3RSO 16:27 → OBSVTOIN 10-03 11:55 → 3RSO 10-05 06:23
PROVIDERS: ADMIT Internal Medicine; ATTEND Internal Medicine
DX: F10.231 Alcohol dependence with withdrawal delirium (principal); K29.20 Alcoholic gastritis without bleeding; K52.9 Noninfective gastroenteritis and colitis, unspecified; E86.0 Dehydration; F32.9 Major depressive disorder, single episode, unspecified; K21.9 Gastro-esophageal reflux disease without esophagitis; F41.9 Anxiety disorder, unspecified; D50.9 Iron deficiency anemia, unspecified; R73.9 Hyperglycemia, unspecified; F17.210 Nicotine dependence, cigarettes, uncomplicated; Q77.4 Achondroplasia; Z82.49 Family history of ischemic heart disease and other diseases of the circulatory system

== ENCOUNTER 2017-10-05 15:05 | Inpatient (IN) | payer MEDICARE, MEDICAID, OTHER ==
[2017-10-05 16:11] VITALS: BMI 70.6
--- NOTE | 2017-10-05 17:28 | CP.PCM.PCO ---
Physician Communication Note - Physician Communication Note Physician Communication Note: pt was seen on medical floor today, see notes
--- NOTE | 2017-10-05 17:57 | PCM.BM ---
<Jen Mendoza - Last Filed: 10/05/17 17:54> Treatment Plan Problems - Problems identified on initial assessmt ineffective coping skills Date Initiated: 10/05/17 Time Initiated: 18:00 Assessment reference: NA Status: Active Priority: 1 altered thoughts r/t hearing voices Date Initiated: 10/05/17 Time Initiated: 18:00 Assessment reference: NA Status: Active Priority: 2 non compliance Date Initiated: 10/05/17 Time Initiated: 18:00 Assessment reference: NA Status: Active Priority: 3 alcohol abuse Date Initiated: 10/05/17 Time Initiated: 18:00 Assessment reference: NA Status: Active Priority: 4 Treatment assets and liabiliti Patient Assests: cooperative, ADL independent, physically healthy, good past tx response, cognitively intact Patient Liabilities: live alone, poor support system, substance abuse - Milieu Protocol Maintain good personal hygiene: daily Encourage regular showers, daily Remind patient to perform daily oral care, daily Assist patient to perform ADL's Maintain personal safety: every shift Educate patient to report safety concerns to staff, every shift Monitor environment for contraband/sharps Medication safety: Monitor for expected outcome, potential side effects: every shift, Assess barriers to learning: every shift, Assess readiness for medication education: every shift Discharge/Continuing Care - Education Needs Education Needs: Patient Medication, Patient Diagnosis/Disease Process, Patient Coping Skills, Patient Community resources, Patient Activities of Daily Living, Patient Pain, Patient Nutrition, Patient Health Practices/Safety, Patient Personal Hygiene/Grooming, Patient Aftercare Safety Plan - Discharge Discharge Criteria: Tolerates medication w/o severe side effects, Free of Suicidal thoughts, Free of agitation, Normal sleep pattern, Ability to care for self, No longer exhibiting s/s of withdrawal, Reduction of target symptoms Discharge to:: Home <Josemanuel Lockwood - Last Filed: 10/06/17 15:01> - Diagnosis (1) Alcohol dependence Status: Acute Interventions: Seroquel 25 mg po HS for psychosis and mood stabilization Remeron 15mg po hs for depression and insomnia 12/18 15:01 (2) MDD (major depressive disorder) Status: Acute Interventions: Librium 25 mg po q8 decreased to 25 mg po q12 for alcohol withdrawal. Consider naltrexone for alcohol withdrawal 10/06/17 15:01
[2017-10-06] MEDS: Multivitamin Therapeutic Tab PO SCH (08:27)
--- NOTE | 2017-10-06 13:40 | PCM.PYCHPN ---
Psychiatric Progress Note - Psychiatric Progress Note Patient seen today, length of contact: 35 min Patient Chief Complaint: "feeling better and mood is starting to go back to normal, I don't have any bad thoughts" Problems Identified/Issues Discussed: Patient is a 52 year old male, with history of MDD and alcohol use disorder, self reported h/o "more than 10" psychiatric admissions and >7 suicidal attempts , on disability, who was initially admitted to the psychiatric unit for depression, suicidal thoughts Patient presented to the ER with very superficial cuts to his neck which did not require any sutures. Patient was treated on the psychiatric unit from on 09/30/17-10/02/17 and transferred to the medical floor from 10/03/17-10/05/17 for treatment of nausea/ vomiting and chest pain. This provider visited with him on 10/04/17. At that time he was disoriented and delusional, likely secondary to alcohol withdrawal delirium/possible benzo delirium. Please refer to Dr. Mills initial psychiatric evaluation on 10/01/17 for full assessment. I met with patient at bedside this morning and again during treatment team meeting. Patients orientation and thought process is much improved since our last interview x2 days ago. Patient also remembers me from this visit. He is oriented x3 and focus is good. Patient reports that he "is feeling better and mood is starting to go back to normal, I don't have any bad thoughts". His energy and sleep are also better. Patient denies any perceptual disturbance "though I had it when I first got here". He doesn't appear to be responding to internal stimuli and responses are relevant to questioning. Thus far, patient is tolerating his medications. He denies any new side effects , discomfort or pain. Tremors from alcohol withdrawal have resolved. Staff notes indicate that patient has been in control. He is visible on the unit and attended groups. Still not very interactive. There were no behavioral issues overnight. Diagnostic Results: MDD with psychosis alcohol use disorder r/o alcohol withdrawal symptoms (under control) Medication Change: Yes Medical Record Reviewed: Yes (remeron 15 mg po hs initiated) Mental Status Examination - Cognitive Function Orientation: Person, Place, Situation Attention: WNL Concentration: WNL Fund of Knowledge: WNL - Mood Mood: Depressed (is feeling better and mood is starting to go back to normal, I don't have any bad thoughts") - Affect Affect: Constricted - Speech Speech: Appropriate - Formal Thought Process Formal Thought Process: No Impairment (denies any further hallucinations) - Suicidal Ideation Suicidal Ideation: No - Homicidal Ideation Homicidal Ideation: No Goal/Treatment Plan - Goal/Treatment Plan Progress Toward Problem(s) and Goals/Treatment Plan: * group, milieu and supportive tx * No new floor labs thus far * Vitals reviewed and noted below: Selected Entries 10/05/17 10/06/17 17:46 06:22 Temperature 98.1 F Pulse Rate 64 72 Respiratory 16 Rate Blood Pressure 134/98 H 85/57 L * Seroquel 25 mg po HS for psychosis and mood stabilization * Librium 25 mg po q8 decreased to 25 mg po q12 for alcohol withdrawal. * Remeron 15mg po hs for depression and insomnia * Consider naltrexone for alcohol withdrawal -
[2017-10-07] MEDS: Multivitamin Therapeutic Tab PO SCH (08:54)
--- NOTE | 2017-10-07 13:07 | PCM.PYCHPN ---
Psychiatric Progress Note - Psychiatric Progress Note Patient seen today, length of contact: 25 min Patient Chief Complaint: "feeling better and mood is starting to go back to normal, I don't have any bad thoughts" Problems Identified/Issues Discussed: Patient is a 52 year old male, with history of MDD and alcohol use disorder, self reported h/o "more than 10" psychiatric admissions and >7 suicidal attempts , on disability, who was initially admitted to the psychiatric unit for depression, suicidal thoughts Patient presented to the ER with very superficial cuts to his neck which did not require any sutures. Patient was treated on the psychiatric unit from on 09/30/17-10/02/17 and transferred to the medical floor from 10/03/17-10/05/17 for treatment of nausea/ vomiting and chest pain. This provider visited with him on 10/04/17. At that time he was disoriented and delusional, likely secondary to alcohol withdrawal delirium/possible benzo delirium. I reviewed recent unit notes and met with patient in the dayroom this morning. Patients orientation and thought process remain much improved since our first interview on the medical floor x3days ago. Patient also remembers me from this visit. He is oriented x3 and focus is good. Appears brighter and more engaged. Patient reports that he "is feeling better and mood is going back to normal, I don't have any bad thoughts". He is hopeful. Energy and sleep are also better. Patient denies any perceptual disturbance "though I had it when I first got here ". He doesn't appear to be responding to internal stimuli and responses are relevant to questioning. Thus far, patient is tolerating his medications. He denies any new side effects , discomfort or pain. Tremors from alcohol withdrawal have resolved and patient refused librium. Staff notes indicate that patient has been in control. He is visible on the unit and attended groups. Becoming a little more interactive. There were no behavioral issues overnight. Diagnostic Results: MDD with psychosis alcohol use disorder r/o alcohol withdrawal symptoms (under control) Medication Change: Yes Medical Record Reviewed: Yes (d/c librium) Mental Status Examination - Cognitive Function Orientation: Person, Place, Situation Attention: WNL Concentration: WNL Fund of Knowledge: WNL - Mood Mood: Depressed (is feeling better and mood is starting to go back to normal, I don't have any bad thoughts") - Affect Affect: Constricted - Speech Speech: Appropriate - Formal Thought Process Formal Thought Process: No Impairment (denies any further hallucinations) - Suicidal Ideation Suicidal Ideation: No - Homicidal Ideation Homicidal Ideation: No Goal/Treatment Plan - Goal/Treatment Plan Progress Toward Problem(s) and Goals/Treatment Plan: * group, milieu and supportive tx * No new floor labs thus far * Vitals reviewed and noted below: Selected Entries 10/07/17 10/07/17 07:00 08:55 Temperature 97.3 F L Pulse Rate 66 60 Respiratory 18 Rate Blood Pressure 114/92 H 98/55 L * Seroquel 25 mg po HS for psychosis and mood stabilization * Librium discontinued on 10/07/17 * Remeron 15mg po hs for depression and insomnia * Consider naltrexone to help patient deal with his alcohol addiction
[2017-10-08 06:51] VITALS: TEMP 97.5
[2017-10-08] MEDS: Multivitamin Therapeutic Tab PO SCH (08:40)
--- NOTE | 2017-10-08 09:52 | PCM.PYCHPN ---
Psychiatric Progress Note - Psychiatric Progress Note Patient seen today, length of contact: 25 min Patient Chief Complaint: "feeling better and mood is starting to go back to normal, I don't have any bad thoughts" Problems Identified/Issues Discussed: Patient is a 52 year old male, with history of MDD and alcohol use disorder, self reported h/o "more than 10" psychiatric admissions and >7 suicidal attempts , on disability, who was initially admitted to the psychiatric unit for depression, suicidal thoughts Patient presented to the ER with very superficial cuts to his neck which did not require any sutures. Patient was treated on the psychiatric unit from on 09/30/17-10/02/17 and transferred to the medical floor from 10/03/17-10/05/17 for treatment of nausea/ vomiting and chest pain. This provider visited with him on 10/04/17. At that time he was disoriented and delusional, likely secondary to alcohol withdrawal delirium/possible benzo delirium. I reviewed recent unit notes and met with patient in the dayroom again this morning. Patients orientation and thought process remain much improved since our first interview on the medical floor x4 days ago. Patient also remembers me from this visit. He is oriented x3 and focus is good. Appears brighter and more engaged. Patient consistently reports that he "is feeling better and mood is going back to normal, I don't have any bad thoughts". He is hopeful. Energy and sleep are also better. Patient denies any perceptual disturbance "though I had it when I first got here". He doesn't appear to be responding to internal stimuli and responses are relevant to questioning. 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 Thus far, patient is tolerating his medications. He refused Seroquel, indicating that he didn't like the medication. He denies any new side effects, discomfort or pain. Tremors from alcohol withdrawal have resolved and librium was discontinued yesterday. Staff notes indicate that patient has been in control. He is visible on the unit and attending most groups. Generally pleasant and becoming a little more interactive. There were no major behavioral issues over the weekend. Diagnostic Results: MDD with psychosis alcohol use disorder r/o alcohol withdrawal symptoms (under control) Medication Change: Yes Medical Record Reviewed: Yes (d/c librium, d/c'ed seroquel) Mental Status Examination - Cognitive Function Orientation: Person, Place, Situation Attention: WNL Concentration: WNL Fund of Knowledge: WNL - Mood Mood: Depressed (is feeling better and mood is starting to go back to normal, I don't have any bad thoughts") - Affect Affect: Constricted - Speech Speech: Appropriate - Formal Thought Process Formal Thought Process: No Impairment (denies any further hallucinations) - Suicidal Ideation Suicidal Ideation: No - Homicidal Ideation Homicidal Ideation: No Goal/Treatment Plan - Goal/Treatment Plan Progress Toward Problem(s) and Goals/Treatment Plan: * group, milieu and supportive tx * No new floor labs thus far * Vitals reviewed and noted below: 10/08/17 06:51 Temperature 97.5 F L Pulse Rate 66 Respiratory 18 Rate Blood Pressure 140/75 * Seroquel 25 mg po HS discontinued on 10/08/17, per patient request * Librium discontinued on 10/07/17 * Remeron 15 mg po hs for depression and insomnia * Consider naltrexone to help patient deal with his alcohol addiction
[2017-10-09 07:29] VITALS: BP 101/72; PULSE 73; RESP 20
[2017-10-09] MEDS: Multivitamin Therapeutic Tab PO SCH (08:45)
[2017-10-09] MEDS ORDERED: Magnesium Hydroxide Susp 30 ml UD PO PRN (11:34)
[2017-10-09] MEDS ORDERED: Alum-Mag Hydrox-Simethicone Susp (30 mL) PO PRN (11:34)
--- NOTE | 2017-10-09 15:13 | PCM.PYCHDC ---
Mental Status Examination - Mental Status Examination Orientation: Person, Place, Situation, Time Memory: Intact Mood: Neutral Affect: Broad (and mood congruent) Speech: Appropriate Attention: WNL Concentration: WNL Association: WNL Fund of Knowledge: WNL Formal Thought Process: No Impairment Description of patient's judgement and insight: Pt has improved insight into mental and medical illness, pt was compliant with medications and unit rules and regulations, pt was going to groups, was calm, cooperative, socially appropriate, no behavioral incidents, no agitation, no aggression. Psychotic Thoughts and Behaviors: Pt denied v/a/t hallucinations, denied paranoid ideations, pt does not appear to be psychotic, and thought process is goal directed. Suicidal Ideation: No Current Homicidal Ideation?: No Plan: pt adamantly denied thoughts of harming self or others denied intent or plan. Discharge Summary - Discharge Note Reason for Hospitalization: patient was admitted to the psychiatric inpatient unit for evaluation of depressive symptoms, possible suicidal ideation, confusion Psychiatric History (includes Medical, Family, Personal Hx): h/o depression and alcoholism Laboratory Data: Vital Signs Temp Pulse Resp BP 10/09/17 07:28 97.5 F L 73 20 101/72 10/08/17 16:50 80 136/105 H 10/08/17 16:18 80 136/105 H 10/08/17 06:51 97.5 F L 66 18 140/75 10/07/17 18:16 98.6 F 86 20 150/90 10/07/17 17:44 86 150/90 10/07/17 08:55 60 98/55 L 10/07/17 07:00 97.3 F L 66 18 114/92 H 10/06/17 15:00 7 L 100/60 10/06/17 07:00 98.1 F 72 16 85/57 L 10/06/17 06:22 98.1 F 72 16 85/57 L 10/05/17 17:46 64 134/98 H labs see from the previous hospitalization to the psychiatric inpatient unit and medical floor admission 10/05/17 Consultations:: List each consultation separately and include: 1. Reason for request. 2. Findings. 3. Follow-up Consultations: medical consult appreciated, patient was transferred from the medical floor please see notes for more detailed information Summary of Hospital Course include:: 1. Description of specific treatment plan utilized for patients during their course of treatmen. 2. Summarize the time- course for resolution of acute symptoms and/or regressed behaviors. 3. Describe issues identified and worked on during hospitalization. 4. Describe medication utilized. 5. Describe medical problems identified and treated. 6. Reassessment of suicide risk Summary of Hospital Course: shortly pt is 52 year old male, with self reported h/o MDD and alcohol use disorder, self reported h/o "more than 10" psychiatric admissions and more than 7 suicidal attempts, pt also has ETOH use disorder, lives independently, on disability, does not work, pt came to the hospital for evaluation of chest tightness, chest pain, was medically cleared, in the emergency room patient verbalize thoughts of harming himself reported being depressed and hopeless, patient cut his neck A day prior to come to the hospital, patient has very superficial cuts on his neck, did not require any sutures, patient requires further evaluation and stabilization in acute psychiatric inpatient unit, on second day of admission, patient started to vomit, and required to go to the emergency room and subsequently transferred to the medical side. Patient was stabilized on the medical side for alcohol withdrawal delirium, patient was transferred back to the psychiatric inpatient unit for evaluation and stabilization of depressive symptoms and possible dose of harming himself. Please see admission notes for more detailed information. At the time of admission patient presented to be depressed, hopeless helpless, worthless guilty, patient also verbalized that he is hearing voices, patient had thoughts of harming himself. Over the course of hospitalization patient was stabilized on the following medications: Seroquel 25 mg po HS for psychosis and mood stabilizatio Librium tapering dose Ur possible alcohol withdrawal symptoms Multivitamins, thiamine, folic acid Remeron 15mg po hs for depression and insomnia naltrexone for alcohol cravings was offered, initially patient gladly accepted that offer, but patient does not want to take medication later on. patient tolerated medications well, no side effects observed or reported, aims 0 , no EPS. Over the course of this hospitalization pt was attending groups, pt also had medication management, had therapeutic milieu. Overall pt improved significantly, pt's affect became brighter, pt was less depressed, has realistic future oriented plans pt wants to find an apartment in [place] building, pt also does not appear to be psychotic, or anxious, pt was socially appropriate, no behavioral issues, pts insight improved as well and soon pt deemed to be ready for discharge. At the time of the discharge pt denied been depressed, denied thoughts of harming self or others, denied psychotic symptoms, and pt does not appeared to be psychotic, denied been anxious, pt is not in imminent danger to self or others, will be following up at [facility], information about follow up appointment, time and address provided to the pt, it is patient responsibility to follow up with outpatient clinic, PMD as well as specialists (see note for more detailed information). In case pt will need to obtain results of studies pending at discharge pt was provided with contact information of Psychiatric Inpatient unit [phone] as well as Medical Record Department [phone]. Nicotine patch was offered Naltrexone treatment offered, but pt declined this offer Counseling about smoking and alcohol cessation provided AA meetings as well as smoking cessation treatment program information was provided by the pt was provided with prescriptions for all of medications (please see medication reconciliation form) Pt was educated about safety plan in case of worsening of symptoms or in case of suicidal or homicidal ideation call 911 or go to the nearest ER, also was educated to take meds as prescribed and stay away from drugs, pt verbalized understanding. - Diagnosis (1) MDD (major depressive disorder) Status: Acute Priority: High (2) Alcohol use disorder Status: Chronic Priority: High - Final Diagnosis (DSM 5) Condition upon Discharge: GOOD DSM 5: alcohol withdrawal delirium cleared Disposition: HOME/ ROUTINE Follow-up Treatment Plan: At the time of the discharge pt denied been depressed, denied thoughts of harming self or others, denied psychotic symptoms, and pt does not appeared to be psychotic, denied been anxious, pt is not in imminent danger to self or others, will be following up at [facility], information about follow up appointment, time and address provided to the pt, it is patient responsibility to follow up with outpatient clinic, PMD as well as specialists (see note for more detailed information). In case pt will need to obtain results of studies pending at discharge pt was provided with contact information of Psychiatric Inpatient unit [phone] as well as Medical Record Department [phone]. Nicotine patch was offered Naltrexone treatment offered, but pt declined this offer Counseling about smoking and alcohol cessation provided AA meetings as well as smoking cessation treatment program information was provided by the pt was provided with prescriptions for all of medications (please see medication reconciliation form) Pt was educated about safety plan in case of worsening of symptoms or in case of suicidal or homicidal ideation call 911 or go to the nearest ER, also was educated to take meds as prescribed and stay away from drugs, pt verbalized understanding. Prescriptions/Medication Reconciliation: Famotidine [Pepcid] 40 mg PO HS #7 tab Folic Acid 1 mg PO DAILY #14 tab Metoprolol Tartrate [Lopressor] 25 mg PO BID #14 tab Mirtazapine [Remeron] 15 mg PO HS #14 tab Multivitamin Therapeutic Tab [Thera Tab] 1 tab PO 0800 #14 tab Nicotine 21 mg/24 hr [Nicoderm Cq] 1 patch TD DAILY #14 patch Thiamine [Vitamin B1 Tab] 100 mg PO DAILY #14 tab - Smoking Cessation Smoking Cessation Medication prescribed: Yes - Antipsychotic Medications Pt discharged on 2 or more routine antipsychotic medications: No
== END 2017-10-09 13:36 | disposition home or self-care (01) | DRG 881 ==
LOC: PSYC 15:05
PROVIDERS: ADMIT Psychiatry & Neurology Psychiatry; ATTEND Psychiatry & Neurology Psychiatry
PROC: GZ3ZZZZ Medication Management (ICD-10-PCS; principal; 2017-10-06)
DX: F32.9 Major depressive disorder, single episode, unspecified (principal); F10.231 Alcohol dependence with withdrawal delirium; G47.00 Insomnia, unspecified

== ENCOUNTER 2017-10-24 21:45 | Inpatient (IN) | payer MEDICARE, MEDICAID, OTHER ==
[2017-10-24 21:59] LABS: ACETAMINOPHEN < 10.0 ug/ml (10.0-20.0); SALICYLATE < 1 mg/dL (2.0-20.0)
[2017-10-24 22:23] LABS: BLOOD UREA NITROGEN 15 mg/dL (7-21); CALCIUM 8.8 mg/dL (8.4-10.5); GFR AFRICAN-AMERICAN > 60; GFR NON-AFRICAN AMERICAN > 60
[2017-10-24 22:24] LABS: ALB/GLOB RATIO 1.5 (1.1-1.8); ALBUMIN 4.3 g/dL (3.0-4.8); ALT/SGPT 217 U/L (7-56); AST/SGOT 231 U/L (17-59)
[2017-10-24] MEDS ORDERED: Multivitamin (MVI) 10 ML, Thiamine 100 MG, Folic Acid 1 MG in Sodium Chloride 0.9% 1,00... IV ONE (22:50)
[2017-10-24 22:51] LABS: BARBITURATES, UR NEGATIVE (NEGATIVE); BENZODIAZEPINES, UR POSITIVE (NEGATIVE)
[2017-10-24 22:52] LABS: OPIATES, UR NEGATIVE (NEGATIVE); PHENCYCLIDINE, UR NEGATIVE (NEGATIVE)
[2017-10-24 22:53] LABS: RBC 4.44 10^6/uL (3.5-6.1); WHITE BLOOD COUNT 6.4 10^3/ul (4.5-11.0)
[2017-10-24 22:54] LABS: HEMOGLOBIN 13.9 g/dL (14.0-18.0); MEAN CELL VOLUME 88.7 fl (80.0-105.0); MEAN CORPUSCULAR HEMOGLOBIN 31.3 pg (25.0-35.0); MEAN CORPUSCULAR HGB CONC 35.3 g/dl (31.0-37.0); RED CELL DISTRIBUTION WIDTH 14.6 % (11.5-14.5)
[2017-10-24 23:00] LABS: URINE APPEARANCE CLEAR (CLEAR); URINE BILIRUBIN NEGATIVE (NEGATIVE); URINE COLOR YELLOW (YELLOW); URINE GLUCOSE (UA) NEGATIVE (NEGATIVE)
[2017-10-24 23:01] LABS: PH,URINE 6.5 (4.7-8.0); URINE BLOOD TRACE (NEGATIVE); URINE LEUKOCYTE ESTERASE Negative Leu/uL (NEGATIVE); URINE PROTEIN NEGATIVE mg/dL (<30 mg/dL)
[2017-10-24 23:02] LABS: URINE BACTERIA FEW (NEG); URINE WBC 0 - 2 /hpf (0-6)
[2017-10-25 10:03] VITALS: TEMP 97.6; O2SAT 99
[2017-10-25 11:45] VITALS: RESP 20
--- NOTE | 2017-10-25 13:41 | RAD ---
HISTORY: Chest Pain COMPARISON: 10/02/2017 FINDINGS: LUNGS: No active pulmonary disease. PLEURA: No significant pleural effusion identified, no pneumothorax apparent. CARDIOVASCULAR: Normal. OSSEOUS STRUCTURES: No significant abnormalities. VISUALIZED UPPER ABDOMEN: Normal. OTHER FINDINGS: None. IMPRESSION: No active disease.
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
--- NOTE | 2017-10-25 14:35 | PCM.BM ---
<Pierre Armstrong - Last Filed: 10/25/17 14:35> Treatment Plan Problems - Problems identified on initial assessmt DEPRESSIVE SYMPTOMS Date Initiated: 10/25/17 Time Initiated: 14:33 Assessment reference: HP, NA Status: Active DEFENSIVE COPING Date Initiated: 10/25/17 Time Initiated: 14:34 Assessment reference: HP, NA Status: Active ALCOHOL ABUSE Date Initiated: 10/25/17 Time Initiated: 14:34 Assessment reference: HP, NA Status: Active Treatment assets and liabiliti Patient Assests: cooperative, ADL independent, physically healthy, negotiates basic needs, good past tx response, cognitively intact, other Patient Liabilities: live alone, financial problems, poor support system, relationship conflicts, substance abuse, other - Milieu Protocol Maintain good personal hygiene: daily Encourage regular showers, daily Remind patient to perform daily oral care, daily Assist patient to perform ADL's Maintain personal safety: daily Educate patient to report safety concerns to staff, daily Monitor environment for contraband/sharps Medication safety: Monitor for expected outcome, potential side effects: daily, Assess barriers to learning: daily, Assess readiness for medication education: daily Milieu Narrative: Milieu/structure/supportive therapy Medical consult appreciated, see medical team note for more detailed info SW consultation for discharge plan and social issues Med management Ativan 2 mg 4 times a day scheduled for alcohol withdrawal symptoms Ativan as needed for alcohol withdrawals Monitor vital signs every 6 hours Multivitamins, folic acid, thiamine daily Remeron 15 mg at the nighttime will be given for depression Abilify 5 mg at the nighttime for mood stabilization and psychotic symptoms Naltrexone will be discussed with the patient for alcohol cravings Family involvement Follow up on labs Will monitor closely Pt was educated about risk/benefits and alternatives of medications, coping strategies (safety plan, suicide prevention), relapse prevention, importance of follow up with psychiatrist and therapist, stay away from drugs/alcohol/smoking Discharge/Continuing Care - Education Needs Education Needs: Patient Medication, Patient Diagnosis/Disease Process, Patient Coping Skills, Patient Anger Management skills, Patient Placement options, Patient Community resources, Patient Activities of Daily Living, Patient Health Practices/Safety, Patient Personal Hygiene/Grooming, Patient Aftercare Safety Plan - Discharge Discharge Criteria: Free of Suicidal thoughts, Free of Homicidal thoughts, Free of agitation, Normal sleep pattern, Ability to care for self - Treatment Team Participation Patient/Family/SO Statement: Milieu/structure/supportive therapy Medical consult appreciated, see medical team note for more detailed info SW consultation for discharge plan and social issues Med management Ativan 2 mg 4 times a day scheduled for alcohol withdrawal symptoms Ativan as needed for alcohol withdrawals Monitor vital signs every 6 hours Multivitamins, folic acid, thiamine daily Remeron 15 mg at the nighttime will be given for depression Abilify 5 mg at the nighttime for mood stabilization and psychotic symptoms Naltrexone will be discussed with the patient for alcohol cravings Family involvement Follow up on labs Will monitor closely Pt was educated about risk/benefits and alternatives of medications, coping strategies (safety plan, suicide prevention), relapse prevention, importance of follow up with psychiatrist and therapist, stay away from drugs/alcohol/smoking <Nasra Gregory - Last Filed: 10/25/17 15:14> Family Contact Family involvement: Famliy/SO not involved
[2017-10-26] MEDS ORDERED: Multivitamin Therapeutic Tab PO SCH (08:00)
[2017-10-26 08:01] LABS: GLUCOSE,FASTING 88 mg/dL (65-110); HDL CHOLESTEROL 73 mg/dL (29-60)
[2017-10-26 08:13] LABS: LDL CHOLESTEROL 39 mg/dL (0-129)
[2017-10-26 08:16] LABS: FREE T4 0.74 ng/dL (0.78-2.19)
--- NOTE | 2017-10-26 13:42 | PCM.PYCHPN ---
Psychiatric Progress Note - Psychiatric Progress Note Patient seen today, length of contact: 30min Patient Chief Complaint: "I am okay now, but I don't feel good, I feel safe" Problems Identified/Issues Discussed: Suicide/ homicide prevention, past psychiatric h/o, current psychiatric symptoms , medical problems, risk/benefits and alternatives of medications, medications compliance, coping strategies, substance abuse h/o, relapse prevention, importance of follow up with psychiatrist and therapist, discharge plan. Medical Problems: alcohol withdrawals, better controlled now Diagnostic Results: 10/24/17 21:38 10/24/17 21:38 Lab Results 10/26/17 07:30: Free T4 0.74 L, TSH 3rd Generation 0.70 10/26/17 07:30: Fasting Glucose 88, Triglycerides 72, Cholesterol 123 L, LDL Cholesterol Direct 39, HDL Cholesterol 73 H 10/24/17 21:38: Alcohol, Quantitative 272 H 10/24/17 21:38: Salicylates < 1 L, Acetaminophen < 10.0 L 10/24/17 21:38: Urine Opiates Screen Negative, Urine Methadone Screen Negative, Ur Barbiturates Screen Negative, Ur Phencyclidine Scrn Negative, Ur Amphetamines Screen Negative, U Benzodiazepines Scrn Positive H, U Oth Cocaine Metabols Negative, U Cannabinoids Screen Negative 10/24/17 21:38: Urine Color Yellow, Urine Appearance Clear, Urine pH 6.5, Ur Specific [place] 1.025, Urine Protein Negative, Urine Glucose (UA) Negative, Urine Ketones Negative, Urine Blood Trace H, Urine Nitrate Negative, Urine Bilirubin Negative, Urine Urobilinogen 1.0 H, Ur Leukocyte Esterase Negative, Urine RBC 1 - 3, Urine WBC 0 - 2, Ur Epithelial Cells 1 - 3, Urine Bacteria Few 10/24/17 21:38: Sodium 148, Potassium 4.0, Chloride 108 H, Carbon Dioxide 23, Anion Gap 21 H, BUN 15, Creatinine 0.6 L, Est GFR ( Amer) > 60, Est GFR ( Non-Af Amer) > 60, Random Glucose 96, Calcium 8.8, Total Bilirubin 0.5, AST 231 H D, ALT 217 H, Alkaline Phosphatase 89, Total Protein 7.2, Albumin 4.3, Globulin 2.8, Albumin/Globulin Ratio 1.5 10/24/17 21:38: WBC 6.4 D, RBC 4.44, Hgb 13.9 L, Hct 39.4 L, MCV 88.7 D, MCH 31.3, MCHC 35.3, RDW 14.6 H, Plt Count 484 H, MPV 9.0 Vital Signs Temp Pulse Resp BP Pulse Ox 10/26/17 08:52 86 130/83 10/26/17 07:23 97.6 F 86 20 130/83 10/25/17 22:30 75 152/87 H 10/25/17 16:00 104 H 175/99 H 10/25/17 11:20 20 10/25/17 09:47 97.6 F 102 H 18 166/99 H 99 DSM 5 Symptoms Update: shortly ptis 52 year old male, with self reported h/o MDD and alcohol use disorder, self reported h/o "more than 10" psychiatric admissions and more than 7 suicidal attempts, pt also has ETOH use disorder, lives independently, on disability, does not work, pt came to the hospital for evaluation of depressive symptoms, passive wish to be , pt also was having alcohol withdrawal symptoms required to have benzodiazepins treatment in ED, pt was medically stable, pt requested to be evaluated by psych team, pt presented to be depressed , hopeless, helpless, worthless, patient was noncompliant with the medications, patient did not follow up with outpatient provider since the last admission which took place here at [facility] August 2017, patient relapsed on alcohol, has passive wish to be , does not have outpatient provider, was not able to be maintained on the outpatient setting. Patient requires further evaluation and stabilization into the psychiatric inpatient unit, medications resumption and titration. pt was seen today in his room, pt is withdrawn and isolating from others, pt staying in room most of the times. pt said that now his withdrawal symptoms are better, pt does not have shakes, reported to be able to tolerate food, but has loose stool. pt said that he feels ashamed and depressed, hopeless and helpless. pt denied v/a/t hallucinations, thought process concrete. so far pt tolerates meds well, no side effects observed or reported, AIMS 0, no EPS. Impression: DSM 5 Diagnosis: as per history of bipolar disorder Alcohol use disorder Alcohol withdrawal syndrome without complications History of hypertension Medication Change: No (resumed) Medical Record Reviewed: Yes Consults ordered or reviewed: pt was seen by medical team in ED, no need for consult as of now Mental Status Examination - Cognitive Function Orientation: Person, Place, Situation Memory: Intact Attention: Poor Concentration: Poor Association: WNL Fund of Knowledge: WNL - Mood Mood: Depressed, Anxious - Affect Affect: Constricted - Speech Speech: Slurred - Formal Thought Process Formal Thought Process: No Impairment - Suicidal Ideation Suicidal Ideation: No - Homicidal Ideation Homicidal Ideation: No Goal/Treatment Plan - Goal/Treatment Plan Need for Continued Stay: Remain at risks for inpatient hospitalization, Severe depression anxiety, Discharge may exacerbated symptoms, Failed transitioning, Severe functional impairment Progress Toward Problem(s) and Goals/Treatment Plan: Milieu/structure/supportive therapy Medical consult appreciated, see medical team note for more detailed info SW consultation for discharge plan and social issues Med management Ativan 2 mg 4 times a day scheduled for alcohol withdrawal symptoms Ativan as needed for alcohol withdrawals Monitor vital signs every 6 hours Multivitamins, folic acid, thiamine daily Remeron 15 mg at the nighttime will be given for depression Abilify 5 mg at the nighttime for mood stabilization and psychotic symptoms Naltrexone will be discussed with the patient for alcohol cravings again Family involvement Follow up on labs Will monitor closely Pt was educated about risk/benefits and alternatives of medications, coping strategies (safety plan, suicide prevention), relapse prevention, importance of follow up with psychiatrist and therapist, stay away from drugs/alcohol/smoking Estimated Date of D/C: 11/03/17
--- NOTE | 2017-10-26 23:28 | CP.PCM.PN ---
Subjective - Date & Time of Evaluation Date of Evaluation: 10/26/17 Time of Evaluation: 23:25 - Subjective Subjective: 23:25 Patient was seen when he was by the nursing station. As per nurse he was agitated. Has no complaints. Denies shaking. Medical record was reviewed. This 52 yeara old male was admitted with depression. Has PMH of ETOH, depression, GERD,substance use, smoker. Received ativan 2 mg IM at 22:52 HR 96 168/120 DT's ETOH -272 on 10/24. Elevated lft's T4 0.74 V Benzo positive. Objective - Vital Signs/Intake and Output Vital Signs (last 24 hours): Temp Pulse Resp BP Pulse Ox 97.6 F 81 20 144/98 H 99 10/26/17 07:23 10/26/17 17:00 10/26/17 07:23 10/26/17 17:00 10/25/17 09:47 - Medications Medications: Current Medications Aripiprazole (Abilify) 5 mg PO HS [facility] Last Admin: 10/26/17 21:00 Dose: 5 mg Famotidine (Pepcid) 40 mg PO HS [facility] Last Admin: 10/26/17 21:00 Dose: 40 mg Folic Acid (Folic Acid) 1 mg PO DAILY [facility] Last Admin: 10/26/17 08:49 Dose: 1 mg Lorazepam (Ativan) 2 mg PO QID [facility] PRN Reason: Protocol Last Admin: 10/26/17 21:00 Dose: 2 mg Lorazepam (Ativan) 2 mg PO QID PRN; Protocol PRN Reason: alcohol withdrawals Lorazepam (Ativan) 2 mg IM Q8H PRN; Protocol PRN Reason: agitation/aggression Last Admin: 10/26/17 22:42 Dose: 2 mg Metoprolol Tartrate (Lopressor) 25 mg PO BID [facility] Last Admin: 10/26/17 17:00 Dose: 25 mg Mirtazapine (Remeron) 15 mg PO HS [facility] Last Admin: 10/26/17 21:00 Dose: 15 mg Multivitamins (Thera Tab) 1 tab PO 0800 [facility] Last Admin: 10/26/17 08:49 Dose: 1 tab Nicotine (Nicoderm Cq) 1 patch TD DAILY [facility] Last Admin: 10/26/17 08:49 Dose: 1 patch Ondansetron HCl (Zofran Odt) 4 mg PO Q8H PRN PRN Reason: Nausea/Vomiting Thiamine HCl (Vitamin B1 Tab) 100 mg PO DAILY [facility] Last Admin: 10/26/17 08:49 Dose: 100 mg Ziprasidone (Geodon Inj) 10 mg IM Q8H PRN; Protocol PRN Reason: agitation/aggression - Constitutional Appears: Well, No Acute Distress - Head Exam Head Exam: ATRAUMATIC, NORMAL INSPECTION, NORMOCEPHALIC Additional comments: Ambulating. - Eye Exam Eye Exam: Normal appearance - ENT Exam ENT Exam: Normal External Ear Exam - Neck Exam Neck Exam: Normal Inspection - Respiratory Exam Respiratory Exam: NORMAL BREATHING PATTERN - Cardiovascular Exam Cardiovascular Exam: absent: JVD - GI/Abdominal Exam GI & Abdominal Exam: absent: Distended - Rectal Exam Rectal Exam: Deferred - Exam Additional comments: Deferred. - Extremities Exam Extremities Exam: Normal Inspection - Back Exam Back Exam: NORMAL INSPECTION - Neurological Exam Neurological Exam: Alert, Awake, Oriented x3 - Psychiatric Exam Psychiatric exam: Normal Affect, Normal Mood - Skin Skin Exam: Normal Color Assessment and Plan - Assessment and Plan (Free Text) Assessment: Elevated blood pressure reading. Agitation. Alcohol intoxication. Depression. GERD. Plan: Clonidine 0.2mg PO X 1. Librium 50 mg PO X 1. Ativan 2 mg IM x 1. Monitor.
[2017-10-27 00:07] VITALS: BP 140/100; PULSE 100
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
== END 2017-10-27 06:13 | disposition short-term general hospital (02) | DRG 881 ==
LOC: EDDOWN 21:45 → ERH 10-25 09:01 → PSYC 10-25 10:07
PROVIDERS: ADMIT Psychiatry & Neurology Psychiatry; ATTEND Psychiatry & Neurology Psychiatry
DX: F32.9 Major depressive disorder, single episode, unspecified (principal); F10.231 Alcohol dependence with withdrawal delirium; I10 Essential (primary) hypertension; F17.210 Nicotine dependence, cigarettes, uncomplicated; K21.9 Gastro-esophageal reflux disease without esophagitis; E34.3 Short stature due to endocrine disorder; Y90.8 Blood alcohol level of 240 mg/100 ml or more

== ENCOUNTER 2017-10-27 01:00 | Inpatient (IN) | payer MEDICARE, MEDICAID, OTHER ==
[2017-10-27 02:03] LABS: HEMOGLOBIN 13.8 g/dL (14.0-18.0); MEAN CELL VOLUME 88.8 fl (80.0-105.0); MEAN CORPUSCULAR HEMOGLOBIN 31.4 pg (25.0-35.0); MEAN CORPUSCULAR HGB CONC 35.4 g/dl (31.0-37.0); MEAN PLATELET VOLUME 9.4 fl (7.0-11.0); RBC 4.39 10^6/uL (3.5-6.1); RED CELL DISTRIBUTION WIDTH 14.3 % (11.5-14.5)
--- NOTE | 2017-10-27 02:14 | ED PDOC ---
Arrival/HPI - General Chief Complaint: Medical Clearance Time Seen by Provider: 10/27/17 01:22 Historian: Patient - History of Present Illness Narrative History of Present Illness (Text): 10/27/17 02:11 A 52 year old male, whose past medical history includes alcohol abuse, alcohol induced depression, and admitted to the psychiatric floor is brought down to the emergency department after exhibiting signs of alcohol withdrawal. The patient was administered Ativan and Librium prior to arrival to emergency department. The patient denies fevers, chills, headache, dizziness, chest pain, shortness of breath, dyspnea on exertion, cough, abdominal pain, nausea, vomiting, diarrhea, back pain, neck pain, urinary/bowel changes, or any other somatic complaint. Time/Duration: Other (Today) Symptom Onset: Sudden Symptom Course: Unchanged Activities at Onset: Rest, Light Context: Other ([facility] Psych[facility] Unit) Past Medical History - Provider Review Nursing Documentation Reviewed: Yes - Infectious Disease Hx of Infectious Diseases: None - Cardiac Hx Cardiac Disorders: No Hx Angina: No Hx Cardiac Arrhythmia: No Hx Circulatory Problems: No Hx Congestive Heart Failure: No Hx Heart Murmur: No Hx Heart Transplant: No Hx Hypertension: No Hx Internal Defibrillator: No Hx Mitral Valve Prolapse: No Hx Pacemaker: No Hx Peripheral Edema: No Hx Peripheral Vascular Disease: No - Pulmonary Hx Respiratory Disorders: No Hx Tuberculosis: No - Neurological HX Cerebrovascular Accident: No Hx Seizures: No - Hematological/Oncological Hx Cancer: No - Integumentary Hx Dermatological Disorder: No - Musculoskeletal/Rheumatological Hx Falls: No - Gastrointestinal Hx Gastrointestinal Disorders: No - Genitourinary/Gynecological Hx Sexually Transmitted Diseases: No - Psychiatric Hx Depression: Yes Hx Substance Use: Yes - Surgical History Hx Cardiac Catheterization: No Hx Coronary Stent: No - Anesthesia Hx Anesthesia: No Family/Social History - Physician Review Nursing Documentation Reviewed: Yes Family/Social History: No Known Family HX Smoking Status: Current Some Days Smoker Hx Alcohol Use: Yes Hx Substance Use: Yes Allergies/Home Meds Allergies/Adverse Reactions: Allergies No Known Allergies Allergy (Verified 10/06/17 00:17) Review of Systems - Physician Review All systems were reviewed & negative as marked: Yes - Review of Systems Constitutional: Other (Alcohol Withrawal ). absent: Fevers, Night Sweats Respiratory: absent: SOB, Cough Cardiovascular: absent: Chest Pain, ALMODOVAR Gastrointestinal: absent: Abdominal Pain, Stool Changes, Diarrhea, Nausea, Vomiting Genitourinary Male: absent: Urinary Output Changes Musculoskeletal: absent: Back Pain, Neck Pain Neurological: absent: Headache, Dizziness Physical Exam Vital Signs Reviewed: Yes Vital Signs Temp Pulse Resp BP Pulse Ox 10/27/17 01:09 97.4 F L 93 H 18 150/95 H 97 Temperature: Hypothermic Blood Pressure: Hypertensive Pulse: Tachycardic Respiratory Rate: Normal Appearance: Positive for: Well-Appearing, Non-Toxic, Comfortable Pain Distress: None Mental Status: Positive for: Alert and Oriented X 3 - Systems Exam Head: Present: Atraumatic, Normocephalic Pupils: Present: PERRL Extroacular Muscles: Present: EOMI Conjunctiva: Present: Normal Mouth: Present: Moist Mucous Membranes Neck: Present: Normal Range of Motion Respiratory/Chest: Present: Clear to Auscultation, Good Air Exchange. No: Respiratory Distress, Accessory Muscle Use Cardiovascular: Present: Regular Rate and Rhythm, Normal S1, S2. No: Murmurs Abdomen: No: Tenderness, Distention, Peritoneal Signs Back: Present: Normal Inspection Upper Extremity: Present: Normal Inspection. No: Cyanosis, Edema Lower Extremity: Present: Normal Inspection. No: Edema Neurological: Present: GCS=15, CN II-XII Intact, Speech Normal Skin: Present: Warm, Dry, Normal Color. No: Rashes Psychiatric: Present: Alert, Oriented x 3, Normal Insight, Normal Concentration Medical Decision Making ED Course and Treatment: 10/27/17 02:14 Impression: A 52 year old male is brought down to the emergency department from psychiatric unit for signs of alcohol withdrawal. Plan: -- EKG -- Chest X-ray -- Labs -- Reassess and disposition Progress Notes: 10/27/17 02:22: Case discussed with medical assistant and Dr. Wolff who accepts patient to his service. EKG: Ordered, reviewed, and independently interpreted the EKG. Rate : 94 BPM Rhythm : NSR Interpretation : No acute changes -- Patient refused Chest X-ray. 10/27/17 02:45 Pt. in ED became combative with the ER staff.Pt. was sedated and restrained for his own safety and that of those present in the ED. - Lab Interpretations Lab Results: 10/27/17 01:50 10/27/17 01:50 Lab Results 10/27/17 01:50: Phosphorus 3.3, Magnesium 1.6 L 10/27/17 01:50: WBC 14.3 H D, RBC 4.39, Hgb 13.8 L, Hct 39.0 L, MCV 88.8, MCH 31.4, MCHC 35.4, RDW 14.3, Plt Count 439, MPV 9.4 10/27/17 01:50: Sodium 141, Potassium 3.5 L, Chloride 106, Carbon Dioxide 21, Anion Gap 17, BUN 14, Creatinine 0.6 L, Est GFR ( Amer) > 60, Est GFR ( Non-Af Amer) > 60, Random Glucose 117 H, Calcium 9.4, Total Bilirubin 1.5 H, AST 60 H D, ALT 102 H, Alkaline Phosphatase 75, Lactate Dehydrogenase 512, Total Creatine Kinase 497 H, CK-MB (CK-2) 2.3, CK-MB (CK-2) % Cancelled, Troponin I < 0.01, Total Protein 7.3, Albumin 4.5, Globulin 2.9, Albumin/ Globulin Ratio 1.6 10/27/17 01:50: PT 11.6, INR 1.02, APTT 31.2 I have reviewed the lab results: Yes - EKG Interpretation Interpreted by ED Physician: Yes Type: 12 lead EKG - Medication Orders Current Medication Orders: Enoxaparin Sodium (Lovenox) 40 mg SC DAILY [facility] PRN Reason: Protocol Famotidine (Pepcid) 20 mg PO HS [facility] Multivitamins/Vitamin C 10 ml/Thiamine HCl 100 mg/ Folic Acid 1 mg/ Sodium Chloride 1,011.2 mls @ 100 mls/hr IV .Q10H7M ONE Stop: 10/27/17 15:16 Lorazepam (Ativan) 1 mg IVP Q6H [facility] PRN Reason: Protocol Last Admin: 10/27/17 03:33 Dose: Lorazepam (Ativan) 2 mg IVP Q2H PRN; Protocol PRN Reason: Anxiety Metoprolol Tartrate (Lopressor) 25 mg PO BID [facility] Mirtazapine (Remeron) 15 mg PO HS [facility] Multivitamins (Thera Tab) 1 tab PO 0800 [facility] Nicotine (Nicoderm Cq) 1 patch TD DAILY [facility] Discontinued Medications Multivitamins/Vitamin C 10 ml/Thiamine HCl 100 mg/ Folic Acid 1 mg/ Sodium Chloride 1,011.2 mls @ 500 mls/hr IV .Q2H2M ONE Stop: 10/27/17 05:09 Lorazepam (Ativan) 2 mg IM ONCE ONE Stop: 10/27/17 02:20 Last Admin: 10/27/17 02:36 Dose: 2 mg IM Administration Charges Document 10/27/17 02:36 CNR (Rec: 10/27/17 02:36 CNR [id number]) Injection Site MAR Injection Site Left Deltoid Charges for Administration # of IM Administrations 1 Lorazepam (Ativan) 2 mg IVP STAT STA PRN Reason: Protocol Stop: 10/27/17 03:09 Last Admin: 10/27/17 03:32 Dose: 2 mg IVP Administration Document 10/27/17 03:32 CNR (Rec: 10/27/17 03:33 CNR [id number]) Charges for Administration # of IVP Administrations 1 Lorazepam (Ativan) 1 mg IVP Q2H PRN; Protocol PRN Reason: Anxiety - Scribe Statement The provider has reviewed the documentation as recorded by the Steven Cash Provider Scribe Attestation: All medical record entries made by the Scribe were at my direction and personally dictated by me. I have reviewed the chart and agree that the record accurately reflects my personal performance of the history, physical exam, medical decision making, and the department course for this patient. I have also personally directed, reviewed, and agree with the discharge instructions and disposition. Disposition/Present on Arrival - Present on Arrival Any Indicators Present on Arrival: No History of DVT/PE: No History of Uncontrolled Diabetes: No Urinary Catheter: No History of Decub. Ulcer: No History Surgical Site Infection Following: None - Disposition Have Diagnosis and Disposition been Completed?: Yes Diagnosis: Alcohol withdrawal syndrome Disposition: HOSPITALIZED Disposition Time: :33 Patient Problems: Current Active Problems Problem Status Onset Alcohol withdrawal Acute Condition: STABLE
[2017-10-27 02:16] LABS: WHITE BLOOD COUNT 14.3 10^3/ul (4.5-11.0)
[2017-10-27 02:32] LABS: ALB/GLOB RATIO 1.6 (1.1-1.8); ALBUMIN 4.5 g/dL (3.0-4.8); ALT/SGPT 102 U/L (7-56); AST/SGOT 60 U/L (17-59); BLOOD UREA NITROGEN 14 mg/dL (7-21); CALCIUM 9.4 mg/dL (8.4-10.5); GFR AFRICAN-AMERICAN > 60; GFR NON-AFRICAN AMERICAN > 60
[2017-10-27 02:37] LABS: TROPONIN I < 0.01 ng/mL
[2017-10-27 02:54] LABS: INR 1.02 (0.93-1.08); PARTIAL THROMBOPLASTIN TIME 31.2 Seconds (25.1-36.5); PROTHROMBIN TIME 11.6 SECONDS (9.4-12.5)
[2017-10-27 02:59] LABS: CK-MB 2.3 ng/mL (0.0-3.6)
[2017-10-27] MEDS ORDERED: Multivitamin (MVI) 10 ML, Thiamine 100 MG, Folic Acid 1 MG in Sodium Chloride 0.9% 1,00... IV ONE ×2 (03:08→05:10)
--- NOTE | 2017-10-27 03:35 | CP.PCM.HP ---
History of Present Illness - History of Present Illness History of Present Illness: Medicine H&P: Dr. Wolff Chief Complaint: Shaking HPI: 52 year old male w/ past medical history of alcohol use and depression who has been admitted to the psychiatry [facility] here several times for suicidal ideation and depression presents with alcohol withdrawal. Alcohol level when he was first admitted to psych [facility] was 272 on 10/24. Patient began withdrawing in the psych [facility], was given librium and 2 of ativan, and transferred to the ED for admission to the general medical floors. Note: history limited 2/2 patient's mental status right now Review of Systems: 12 point ROS was attempted but limited secondary to patient 's mental status Surgical Hx: Denies Medical Hx: ETOH use, depression, GERD Allergies: NKDA Social Hx: 1/2 pack of cigarettes; 1/2 pint of vodka per day. Denies illicit Home Meds: Reviewed, as per MAR Family hx: Non-contributory PMD: Dr. Oliveros saw him in the past Present on Admission - Present on Admission Any Indicators Present on Admission: No Past Patient History - Infectious Disease Hx of Infectious Diseases: None - Past Social History Smoking Status: Current Some Days Smoker - CARDIAC Hx Cardiac Disorders: No Hx Angina: No Hx Cardia Arrhythmia: No Hx Circulatory Problems: No Hx Congestive Heart Failure: No Hx Heart Murmur: No Hx Heart Transplant: No Hx Hypertension: No Hx Internal Defibrillator: No Hx Mitral Valve Prolapse: No Hx Pacemaker: No Hx Peripheral Edema: No Hx Peripheral Vascular Disease: No - PULMONARY Hx Respiratory Disorders: No Hx Tuberculosis: No - NEUROLOGICAL HX Cerebrovascular Accident: No Hx Seizures: No - HEMATOLOGICAL/ONCOLOGICAL Hx Cancer: No - INTEGUMENTARY Hx Dermatological Problems: No - MUSCULOSKELETAL/RHEUMATOLOGICAL Hx Falls: No - GASTROINTESTINAL Hx Gastrointestinal Disorders: No - GENITOURINARY/GYNECOLOGICAL Hx Sexually Transmitted Disorders: No - PSYCHIATRIC Hx Depression: Yes Hx Substance Use: Yes - SURGICAL HISTORY Hx Cardiac Catheterization: No Hx Coronary Stent: No - ANESTHESIA Hx Anesthesia: No Meds Allergies/Adverse Reactions: Allergies Allergy/AdvReac Type Severity Reaction Status Date / Time No Known Allergies Allergy Verified 10/06/17 00:17 Physical Exam - Constitutional Appears: Non-toxic, Unkempt, Combative, Agitated, Confused - Head Exam Head Exam: ATRAUMATIC, NORMAL INSPECTION, NORMOCEPHALIC - Eye Exam Eye Exam: EOMI, Normal appearance, PERRL Pupil Exam: NORMAL ACCOMODATION, PERRL - ENT Exam ENT Exam: Mucous Membranes Moist, Normal Exam - Neck Exam Neck exam: Positive for: Normal Inspection - Respiratory Exam Respiratory Exam: Clear to Auscultation Bilateral, NORMAL BREATHING PATTERN - Cardiovascular Exam Cardiovascular Exam: REGULAR RHYTHM - GI/Abdominal Exam GI & Abdominal Exam: Normal Bowel Sounds, Soft. absent: Tenderness - Extremities Exam Extremities exam: Positive for: normal inspection - Back Exam Back exam: NORMAL INSPECTION - Neurological Exam Neurological exam: Alert, CN II-XII Intact, Normal Gait, Oriented x3, Reflexes Normal - Psychiatric Exam Psychiatric exam: Normal Affect, Normal Mood - Skin Skin Exam: Dry, Intact, Normal Color, Warm Results - Vital Signs Recent Vital Signs: Last Vital Signs Temp 97.4 F L 10/27/17 01:09 Pulse 93 H 10/27/17 01:09 Resp 18 10/27/17 01:09 BP 150/95 H 10/27/17 01:09 Pulse Ox 97 10/27/17 01:09 - Labs Result Diagrams: 10/27/17 01:50 10/27/17 01:50 Assessment & Plan - Assessment and Plan (Free Text) Assessment: 52 year old male with past medical history of alcohol abuse presenting with alcohol withdrawal. Alcohol level on admission 2 days ago was 272. Librium given on psych floor with 2 of ativan, but liver enzymes are elevated. Patient was recently started on a beta rush by Dr. Ozuna because of lifestyle and risk factors. Alcohol Withdrawal - CIWA, Seizure, Aspiration, Fall (high) protocols 4 point physical restraints - Ativan EDGARDO and PRN; Banana Bag - Do not give librium Major Depressive Disorder - Continue home Remeron - Psychiatry Consult: Dr. King GERD - Continue home pepcid Hx Tobacco Abuse - Nicotine patch - Advised cessation Hx Alcohol Abuse - As above - Advised cessation GI/DVT Prophylaxis - Pepcid/Lovenox
[2017-10-27 06:46] VITALS: BMI 32.8
[2017-10-27] MEDS ORDERED: Magnesium Sulfate 2 GM in Sodium Chloride 0.9% 100 ML IVPB ONE (07:32)
--- NOTE | 2017-10-27 08:51 | CARD ---
APPROVED REPORT EKG Measurement Heart [id number] <Conclusion> Normal sinus rhythm Normal ECG
[2017-10-27] MEDS: Enoxaparin 40 mg Syringe SC SCH (09:27)
[2017-10-27 17:11] LABS: URINE BILIRUBIN NEGATIVE (NEGATIVE); URINE BLOOD NEGATIVE (NEGATIVE); URINE GLUCOSE (UA) NEGATIVE (NEGATIVE); URINE LEUKOCYTE ESTERASE NEGATIVE Leu/uL (NEGATIVE); URINE PROTEIN TRACE mg/dL (<30 mg/dL); URINE UROBILINOGEN 0.2 E.U./dL (<1 E.U./dL)
[2017-10-27 17:14] LABS: URINE APPEARANCE CLEAR (CLEAR); URINE COLOR YELLOW (YELLOW)
[2017-10-27 17:26] LABS: URINE BACTERIA NEG (NEG); URINE EPITHELIAL CELLS 0 - 2 /hpf (0-5); URINE RBC 0 - 2 /hpf (0-2); URINE WBC 0 - 2 /hpf (0-6)
[2017-10-27 17:33] LABS: BARBITURATES, UR NEGATIVE (NEGATIVE); BENZODIAZEPINES, UR POSITIVE (NEGATIVE); OPIATES, UR NEGATIVE (NEGATIVE); PHENCYCLIDINE, UR NEGATIVE (NEGATIVE)
--- NOTE | 2017-10-27 18:41 | CARD ---
APPROVED REPORT EKG Measurement Heart [id number] ID [id number] <Conclusion> Sinus tachycardia Otherwise normal ECG
--- NOTE | 2017-10-27 22:27 | CON ---
DATE: 10/27/2017 HISTORY OF PRESENT ILLNESS: Shortly, the patient is 52-year-old male, long debilitating history of alcohol use disorder, mental illness, bipolar disorder. Initially, the patient was admitted on the psychiatric inpatient unit for depressive symptoms as well as anxiety symptoms, possible suicidal ideation. The patient stayed on the psychiatric inpatient unit for 2 days, but unfortunately overnight, the patient started to have delirium tremens and required to go to the emergency room and subsequently being admitted on the medical side for alcohol withdrawal delirium. The patient is very familiar to this board writer from the two admissions to the psychiatric inpatient unit, which took place in [place] in 10/2017. The patient is minimizing his history of alcohol abuse and the patient was compliant with the treatment, most likely the patient was drinking more than he reported. The patient was seen on the medical side. The patient presented to be confused in four-point restraints because the patient is pulling IV line as well as trying to elope from the hospital. The patient is very confused, not able to provide any stories. OBJECTIVE: VITAL SIGNS: The patient has tachycardia at 119 and blood pressure 150/95. The patient is very confused and restless. The patient's IV line is blocked and the nursing staff is going to reinsert the IV line for the patient. MEDICATIONS: Reviewed. This board writer increased the dose of benzodiazepines four times a day. Schedule Lovenox, Pepcid. Ativan, seems to disinhibit patient as per nursing report, Lopressor and Remeron 15 mg as well as multivitamins, IV hydration with multivitamins, thiamine, and folic acid. LABORATORY DATA: Reviewed. WBC 14.3. Recommended to have CBC, CMP, urinalysis, urine culture, and sensitivities. We will follow up on that. AST and ALT are trending down from 231 to 60 AST and ALT 217 to 102 today. MENTAL STATUS EXAMINATION: The patient presented to be very confused, restless. Patient appears to be dehydrated, trial IV hydration recommended. The patient is very poor historian; at the present moment, very confused, hallucinating, and restless. Insight and judgment severely impaired. Impulses are not predictable. IMPRESSION: Alcohol withdrawal delirium, alcohol withdrawals, alcohol use disorder, bipolar disorder. PLAN: Continue current management. Continue current medications. We will follow up and advise accordingly. Continue Librium 50 mg four times a day and CIWA protocol. Monitor vital signs. The patient is on one to one, IV hydration. This board writer will also resume Abilify as the patient was taking 5 mg at the nighttime and Geodon as needed. Thank you very much for letting me participate in the care of your patient. Should you have any questions, give me a call back. Christine Mosqueda MD
--- NOTE | 2017-10-28 07:27 | CP.PCM.PN ---
<Tahira Baron - Last Filed: 10/28/17 12:40> Subjective - Date & Time of Evaluation Date of Evaluation: 10/28/17 Time of Evaluation: 07:27 - Subjective Subjective: Internal Medicine Progress Note: Patient seen and examined at bedside. Per nursing, patient was agitated last night requiring STAT dose of Geodon 10mg. Patient currently is AAOx3, not combative, calm. States that he is hungry and would like to have restraints removed. Denies auditory/visual hallucinations. Objective - Vital Signs/Intake and Output Vital Signs (last 24 hours): Temp Pulse Resp BP Pulse Ox 97.6 F 96 H 20 156/79 H 97 10/28/17 06:00 10/28/17 06:00 10/28/17 06:00 10/28/17 06:00 10/28/17 06:00 Intake and Output: 10/28/17 10/28/17 06:59 18:59 Intake Total 360 Output Total 400 Balance -40 - Medications Medications: Current Medications Aripiprazole (Abilify) 5 mg PO HS [facility] Last Admin: 10/27/17 21:21 Dose: 5 mg Chlordiazepoxide (Librium) 50 mg PO Q6 [facility] PRN Reason: Protocol Last Admin: 10/28/17 06:49 Dose: 50 mg Enoxaparin Sodium (Lovenox) 40 mg SC DAILY [facility] PRN Reason: Protocol Last Admin: 10/27/17 09:27 Dose: 40 mg Famotidine (Pepcid) 20 mg PO HS [facility] Last Admin: 10/27/17 21:21 Dose: 20 mg Lorazepam (Ativan) 2 mg IVP Q2H PRN; Protocol PRN Reason: Anxiety Last Admin: 10/27/17 07:48 Dose: 2 mg Metoprolol Tartrate (Lopressor) 25 mg PO BID [facility] Last Admin: 10/27/17 17:18 Dose: 25 mg Mirtazapine (Remeron) 15 mg PO HS [facility] Last Admin: 10/27/17 21:21 Dose: 15 mg Multivitamins (Thera Tab) 1 tab PO 0800 [facility] Nicotine (Nicoderm Cq) 1 patch TD DAILY [facility] Last Admin: 10/27/17 09:29 Dose: 1 patch Ziprasidone (Geodon Inj) 20 mg IM Q12H PRN; Protocol PRN Reason: agitatoin/aggression Last Admin: 10/28/17 01:44 Dose: 20 mg - Labs Labs: PT 11.6 SECONDS (9.4-12.5) 10/27/17 01:50 INR 1.02 (0.93-1.08) 10/27/17 01:50 APTT 31.2 Seconds (25.1-36.5) 10/27/17 01:50 - Constitutional Appears: Well, No Acute Distress - Head Exam Head Exam: ATRAUMATIC, NORMAL INSPECTION, NORMOCEPHALIC - Eye Exam Eye Exam: EOMI, Normal appearance Pupil Exam: NORMAL ACCOMODATION - ENT Exam ENT Exam: Mucous Membranes Moist - Respiratory Exam Respiratory Exam: Clear to Ausculation Bilateral, NORMAL BREATHING PATTERN. absent: Rales, Rhonchi, Wheezes - Cardiovascular Exam Cardiovascular Exam: REGULAR RHYTHM, +S1, +S2 - GI/Abdominal Exam GI & Abdominal Exam: Soft, Normal Bowel Sounds. absent: Guarding, Rigid, Tenderness, Rebound - Exam Additional comments: Welch in - Extremities Exam Extremities Exam: Normal Inspection - Neurological Exam Neurological Exam: Alert, Awake, Oriented x3 Assessment and Plan - Assessment and Plan (Free Text) Assessment: 52 year old male with past medical history of alcohol abuse presenting with alcohol withdrawal. Alcohol level on admission 2 days ago was 272. Librium given on psych floor with 2 of ativan, but liver enzymes are elevated. Patient was recently started on a beta rush by Dr. Ozuna because of lifestyle and risk factors. Alcohol Withdrawal - Stable, afebrile - Less combative this morning, will place in soft restraints - CIWA is 9 this morning - Librium 50mg PO Q6H, Ativan 2mg Q2H prn - CIWA, Seizure, Aspiration, Fall (high) protocols - Multivitamins, Thiamine, Folic acid - Geodon 20mg Q12H prn - Regular diet Major Depressive Disorder - Continue home Remeron - Abilify 5mg PO HS - Psychiatry Consult: Dr. King Elevated LFTs: - AST/ALT 60/102 - Continue to monitor GERD - Continue home pepcid Hx Tobacco Abuse - Nicotine patch - Advised cessation Hx Alcohol Abuse - As above - Advised cessation GI/DVT Prophylaxis - Pepcid/Lovenox Plan discussed with Dr Rossi <Washington Rossi - Last Filed: 10/28/17 13:22> Objective - Vital Signs/Intake and Output Vital Signs (last 24 hours): Temp Pulse Resp BP Pulse Ox 97.8 F 100 H 20 93/53 L 97 10/28/17 12:00 10/28/17 12:00 10/28/17 12:00 10/28/17 12:00 10/28/17 06:00 Intake and Output: 10/28/17 10/28/17 06:59 18:59 Intake Total 360 Output Total 400 Balance -40 - Medications Medications: Current Medications Aripiprazole (Abilify) 5 mg PO HS [facility] Last Admin: 10/27/17 21:21 Dose: 5 mg Chlordiazepoxide (Librium) 50 mg PO Q6 [facility] PRN Reason: Protocol Last Admin: 10/28/17 12:39 Dose: 50 mg Enoxaparin Sodium (Lovenox) 40 mg SC DAILY [facility] PRN Reason: Protocol Last Admin: 10/28/17 10:06 Dose: 40 mg Famotidine (Pepcid) 20 mg PO HS [facility] Last Admin: 10/27/17 21:21 Dose: 20 mg Folic Acid (Folic Acid) 1 mg PO DAILY [facility] Lorazepam (Ativan) 2 mg IVP Q2H PRN; Protocol PRN Reason: Anxiety Last Admin: 10/27/17 07:48 Dose: 2 mg Metoprolol Tartrate (Lopressor) 25 mg PO BID [facility] Last Admin: 10/28/17 10:07 Dose: 25 mg Mirtazapine (Remeron) 15 mg PO HS [facility] Last Admin: 10/27/17 21:21 Dose: 15 mg Multivitamins (Thera Tab) 1 tab PO 0800 [facility] Last Admin: 10/28/17 07:39 Dose: Not Given Nicotine (Nicoderm Cq) 1 patch TD DAILY [facility] Last Admin: 10/28/17 11:00 Dose: 1 patch Thiamine HCl (Vitamin B1 Tab) 100 mg PO DAILY [facility] Ziprasidone (Geodon Inj) 20 mg IM Q12H PRN; Protocol PRN Reason: agitatoin/aggression Last Admin: 10/28/17 01:44 Dose: 20 mg - Labs Labs: PT 11.6 SECONDS (9.4-12.5) 10/27/17 01:50 INR 1.02 (0.93-1.08) 10/27/17 01:50 APTT 31.2 Seconds (25.1-36.5) 10/27/17 01:50 Attending/Attestation - Attestation I have personally seen and examined this patient.: Yes I have fully participated in the care of the patient.: Yes I have reviewed all pertinent clinical information, including history, physical exam and plan: Yes Notes (Text): 10/28/17 13:16 52 year old male with past medical history of alcohol abuse who presented with depression and ?SI initially admitted under psychiatric unit. He underwent alcohol withdrawal / delirium and was transferred to telemetry unit. Overnight events reviewed. This morning he is more alert. Continue with 1:1 observation for patient safety. Continue with librium, ativan prn, multivitamin, folic acid and thiamine. This morning he is more alert. He was counselled on alcohol abstinence. Psychiatry is following. He is on abilify, remeron and geodon prn. He had leukocytosis and transaminitis yesterday; repeat labs this morning are pending. Washington Rossi MD Hospitalist.
[2017-10-28] MEDS: Multivitamin Therapeutic Tab PO SCH (07:39)
[2017-10-28] MEDS: Enoxaparin 40 mg Syringe SC SCH (10:06)
[2017-10-28 13:50] LABS: BASO # 0.02 K/mm3 (0.0-2.0); BASO % 0.2 % (0.0-3.0); EOS # 0.2 (0.0-0.7); EOS % 1.4 % (1.5-5.0); GRAN # 9.08 (1.4-6.5); HEMOGLOBIN 12.9 g/dL (14.0-18.0); LYMPH # 2.1 (1.2-3.4); LYMPH % 17.7 % (22.0-35.0); MEAN CELL VOLUME 90.9 fl (80.0-105.0); MEAN CORPUSCULAR HEMOGLOBIN 30.9 pg (25.0-35.0); MEAN PLATELET VOLUME 9.1 fl (7.0-11.0); MONO # 0.4 (0.1-0.6); MONO % 3.7 % (1.0-6.0); RBC 4.17 10^6/uL (3.5-6.1); WHITE BLOOD COUNT 11.8 10^3/ul (4.5-11.0)
[2017-10-28 14:01] LABS: ALB/GLOB RATIO 1.6 (1.1-1.8); ALBUMIN 4.2 g/dL (3.0-4.8); ALT/SGPT 85 U/L (7-56); AST/SGOT 98 U/L (17-59); BLOOD UREA NITROGEN 16 mg/dL (7-21); CALCIUM 9.1 mg/dL (8.4-10.5); GFR AFRICAN-AMERICAN > 60; GFR NON-AFRICAN AMERICAN > 60
[2017-10-29] MEDS: Multivitamin Therapeutic Tab PO SCH (08:11)
--- NOTE | 2017-10-29 10:02 | CP.PCM.PN ---
<Tahira Baron - Last Filed: 10/29/17 10:05> Subjective - Date & Time of Evaluation Date of Evaluation: 10/29/17 Time of Evaluation: 10:01 - Subjective Subjective: Internal Medicine Progress Note: Patient seen and examined at bedside. Per nursing patient was restless and confused last night, requiring ativan. Currently patient is sitting up eating breakfast. Less confused, wants to go home. Denies headaches, dizziness, cp, palpitations, sob, abdominal pain. Denies visual/auditory hallucinations. Objective - Vital Signs/Intake and Output Vital Signs (last 24 hours): Temp Pulse Resp BP Pulse Ox 97.5 F L 79 20 101/46 L 92 L 10/29/17 06:00 10/29/17 08:10 10/29/17 06:00 10/29/17 06:00 10/29/17 06:00 Intake and Output: 10/29/17 10/29/17 06:59 18:59 Intake Total 960 Output Total 200 Balance 760 - Medications Medications: Current Medications Aripiprazole (Abilify) 5 mg PO HS [facility] Last Admin: 10/28/17 21:15 Dose: 5 mg Chlordiazepoxide (Librium) 25 mg PO Q6 [facility] PRN Reason: Protocol Enoxaparin Sodium (Lovenox) 40 mg SC DAILY [facility] PRN Reason: Protocol Last Admin: 10/28/17 10:06 Dose: 40 mg Famotidine (Pepcid) 20 mg PO HS [facility] Last Admin: 10/28/17 21:15 Dose: 20 mg Folic Acid (Folic Acid) 1 mg PO DAILY [facility] Lorazepam (Ativan) 2 mg IVP Q2H PRN; Protocol PRN Reason: Anxiety Last Admin: 10/29/17 03:23 Dose: 2 mg Metoprolol Tartrate (Lopressor) 25 mg PO BID [facility] Last Admin: 10/28/17 18:01 Dose: 25 mg Mirtazapine (Remeron) 15 mg PO HS [facility] Last Admin: 10/28/17 21:15 Dose: 15 mg Multivitamins (Thera Tab) 1 tab PO 0800 [facility] Last Admin: 10/28/17 07:39 Dose: Not Given Nicotine (Nicoderm Cq) 1 patch TD DAILY [facility] Last Admin: 10/28/17 11:00 Dose: 1 patch Thiamine HCl (Vitamin B1 Tab) 100 mg PO DAILY [facility] Ziprasidone (Geodon Inj) 20 mg IM Q12H PRN; Protocol PRN Reason: agitatoin/aggression Last Admin: 10/28/17 01:44 Dose: 20 mg - Labs Labs: 10/28/17 13:47 10/28/17 13:47 PT 11.6 SECONDS (9.4-12.5) 10/27/17 01:50 INR 1.02 (0.93-1.08) 10/27/17 01:50 APTT 31.2 Seconds (25.1-36.5) 10/27/17 01:50 - Constitutional Appears: Non-toxic, No Acute Distress - Head Exam Head Exam: ATRAUMATIC, NORMAL INSPECTION, NORMOCEPHALIC - Eye Exam Eye Exam: EOMI, Normal appearance - ENT Exam ENT Exam: Mucous Membranes Moist - Neck Exam Neck Exam: Full ROM - Respiratory Exam Respiratory Exam: Clear to Ausculation Bilateral, NORMAL BREATHING PATTERN - Cardiovascular Exam Cardiovascular Exam: REGULAR RHYTHM, +S1, +S2 - GI/Abdominal Exam GI & Abdominal Exam: Soft, Normal Bowel Sounds. absent: Guarding, Rigid, Tenderness - Extremities Exam Extremities Exam: Normal Inspection. absent: Calf Tenderness - Neurological Exam Neurological Exam: Alert, Awake, Oriented x3 - Psychiatric Exam Psychiatric exam: Normal Affect, Normal Mood - Skin Skin Exam: Dry, Normal Color, Warm Assessment and Plan - Assessment and Plan (Free Text) Assessment: 52 year old male with past medical history of alcohol abuse presenting with alcohol withdrawal. Alcohol level on admission 2 days ago was 272. Librium given on psych floor with 2 of ativan, but liver enzymes are elevated. Patient was recently started on a beta rush by Dr. Ozuna because of lifestyle and risk factors. Alcohol Withdrawal - Stable, afebrile - Less combative this morning, will place in soft restraints - CIWA was 4 overnight - Start Librium taper: Librium 25mg PO Q6H, - Ativan 1mg Q2H prn agitation - CIWA, Seizure, Aspiration, Fall (high) protocols - Multivitamins, Thiamine, Folic acid - Geodon 20mg Q12H prn agitation - Regular diet Major Depressive Disorder - Continue home Remeron - Abilify 5mg PO HS - Psychiatry Consult: Dr. King Elevated LFTs: - AST/ALT trending down - Continue to monitor GERD - Continue home pepcid Hx Tobacco Abuse - Nicotine patch - Advised cessation Hx Alcohol Abuse - As above - Advised cessation GI/DVT Prophylaxis - Pepcid/Lovenox Plan discussed with Dr Rossi <Washington Rossi - Last Filed: 10/29/17 11:02> Objective - Vital Signs/Intake and Output Vital Signs (last 24 hours): Temp Pulse Resp BP Pulse Ox 97.5 F L 79 20 101/46 L 92 L 10/29/17 06:00 10/29/17 08:10 10/29/17 06:00 10/29/17 06:00 10/29/17 06:00 Intake and Output: 10/29/17 10/29/17 06:59 18:59 Intake Total 960 Output Total 200 Balance 760 - Medications Medications: Current Medications Aripiprazole (Abilify) 5 mg PO HS [facility] Last Admin: 10/28/17 21:15 Dose: 5 mg Chlordiazepoxide (Librium) 25 mg PO Q6 [facility] PRN Reason: Protocol Enoxaparin Sodium (Lovenox) 40 mg SC DAILY [facility] PRN Reason: Protocol Last Admin: 10/28/17 10:06 Dose: 40 mg Famotidine (Pepcid) 20 mg PO HS [facility] Last Admin: 10/28/17 21:15 Dose: 20 mg Folic Acid (Folic Acid) 1 mg PO DAILY [facility] Lorazepam (Ativan) 1 mg IVP Q2H PRN; Protocol PRN Reason: Anxiety Metoprolol Tartrate (Lopressor) 25 mg PO BID [facility] Last Admin: 10/28/17 18:01 Dose: 25 mg Mirtazapine (Remeron) 15 mg PO HS [facility] Last Admin: 10/28/17 21:15 Dose: 15 mg Multivitamins (Thera Tab) 1 tab PO 0800 [facility] Last Admin: 10/28/17 07:39 Dose: Not Given Nicotine (Nicoderm Cq) 1 patch TD DAILY [facility] Last Admin: 10/28/17 11:00 Dose: 1 patch Thiamine HCl (Vitamin B1 Tab) 100 mg PO DAILY [facility] Ziprasidone (Geodon Inj) 20 mg IM Q12H PRN; Protocol PRN Reason: agitatoin/aggression Last Admin: 10/28/17 01:44 Dose: 20 mg - Labs Labs: 10/28/17 13:47 10/28/17 13:47 PT 11.6 SECONDS (9.4-12.5) 10/27/17 01:50 INR 1.02 (0.93-1.08) 10/27/17 01:50 APTT 31.2 Seconds (25.1-36.5) 10/27/17 01:50 Attending/Attestation - Attestation I have personally seen and examined this patient.: Yes I have fully participated in the care of the patient.: Yes I have reviewed all pertinent clinical information, including history, physical exam and plan: Yes Notes (Text): 10/29/17 10:59 52 year old male with past medical history of alcohol abuse who presented with depression and ?SI initially admitted under psychiatric unit. He underwent alcohol withdrawal / delirium and was transferred to telemetry unit. Continue with multivitamin, folic acid and thiamine. Continue with librium and ativan prn taper for withdrawal symptoms. Continue with soft restaints as needed and 1:1 observatione for patient safety. Overnight events reviewed. Will continue with mult He is on abilify, remeron and geodon prn. Psychiatry follow up requested. Leukocytosis slightly improved yesterday. Labs today are pending. Transaminitis likely secondary to ETOH abuse. Continue to monitor closely. Washington Rossi MD Hospitalist.
[2017-10-29] MEDS: Enoxaparin 40 mg Syringe SC SCH (10:30)
[2017-10-29 11:57] LABS: BASO # 0.01 K/mm3 (0.0-2.0); BASO % 0.1 % (0.0-3.0); EOS # 0.2 (0.0-0.7); EOS % 2.5 % (1.5-5.0); GRAN # 6.63 (1.4-6.5); GRAN % 69.7 % (50.0-68.0); HEMOGLOBIN 12.8 g/dL (14.0-18.0); LYMPH # 2.1 (1.2-3.4); LYMPH % 21.9 % (22.0-35.0); MEAN CELL VOLUME 91.1 fl (80.0-105.0); MEAN CORPUSCULAR HEMOGLOBIN 30.8 pg (25.0-35.0); MEAN CORPUSCULAR HGB CONC 33.8 g/dl (31.0-37.0); MEAN PLATELET VOLUME 9.2 fl (7.0-11.0); MONO # 0.6 (0.1-0.6); MONO % 5.8 % (1.0-6.0); RBC 4.16 10^6/uL (3.5-6.1); RED CELL DISTRIBUTION WIDTH 15.2 % (11.5-14.5); WHITE BLOOD COUNT 9.5 10^3/ul (4.5-11.0)
[2017-10-29 12:06] LABS: ALB/GLOB RATIO 1.4 (1.1-1.8); ALBUMIN 3.9 g/dL (3.0-4.8); ALT/SGPT 74 U/L (7-56); AST/SGOT 83 U/L (17-59); BLOOD UREA NITROGEN 15 mg/dL (7-21); GFR AFRICAN-AMERICAN > 60; GFR NON-AFRICAN AMERICAN > 60
[2017-10-29] MEDS ORDERED: Potassium Chloride 20 mEq ER Tab PO ONE (12:26)
[2017-10-30 06:47] LABS: BASO # 0.01 K/mm3 (0.0-2.0); BASO % 0.1 % (0.0-3.0); EOS # 0.2 (0.0-0.7); GRAN # 7.59 (1.4-6.5); GRAN % 70.1 % (50.0-68.0); HEMOGLOBIN 12.3 g/dL (14.0-18.0); LYMPH # 2.3 (1.2-3.4); LYMPH % 21.1 % (22.0-35.0); MEAN CELL VOLUME 92.1 fl (80.0-105.0); MEAN CORPUSCULAR HEMOGLOBIN 30.2 pg (25.0-35.0); MEAN CORPUSCULAR HGB CONC 32.8 g/dl (31.0-37.0); MEAN PLATELET VOLUME 9.6 fl (7.0-11.0); MONO # 0.7 (0.1-0.6); MONO % 6.7 % (1.0-6.0); RBC 4.07 10^6/uL (3.5-6.1); RED CELL DISTRIBUTION WIDTH 15.3 % (11.5-14.5); WHITE BLOOD COUNT 10.8 10^3/ul (4.5-11.0)
[2017-10-30 07:12] LABS: ALB/GLOB RATIO 1.4 (1.1-1.8); ALBUMIN 3.8 g/dL (3.0-4.8); ALT/SGPT 64 U/L (7-56); AST/SGOT 70 U/L (17-59); BLOOD UREA NITROGEN 15 mg/dL (7-21); CALCIUM 9.1 mg/dL (8.4-10.5); GFR AFRICAN-AMERICAN > 60; GFR NON-AFRICAN AMERICAN > 60
[2017-10-30] MEDS ORDERED: Potassium Chloride 20 mEq ER Tab PO STA (07:23)
[2017-10-30] MEDS ORDERED: Magnesium Sulfate 1 gm in D5W 1 GM/100 ML BAG IVPB ONE (07:23)
[2017-10-30] MEDS: Multivitamin Therapeutic Tab PO SCH (07:57)
--- NOTE | 2017-10-30 09:36 | CP.PCM.PN ---
<Mynor Alvares - Last Filed: 10/30/17 12:41> Subjective - Date & Time of Evaluation Date of Evaluation: 10/30/17 Time of Evaluation: 09:35 - Subjective Subjective: Patient seen and examined this AM. Patient resting comfortably in bed without restraints in place. Patient reported to be calm this AM. Patient reports less agitation and tremors from previous 24 hours. Patient more oriented on exam today from previous. Denies chest pain, abdominal pain, nausea, vomiting, fever , chills. Objective - Vital Signs/Intake and Output Vital Signs (last 24 hours): Temp Pulse Resp BP Pulse Ox 97.9 F 88 18 107/69 95 10/29/17 23:25 10/30/17 06:00 10/29/17 23:25 10/29/17 23:25 10/29/17 23:25 - Medications Medications: Current Medications Aripiprazole (Abilify) 5 mg PO HS [facility] Last Admin: 10/29/17 21:34 Dose: 5 mg Enoxaparin Sodium (Lovenox) 40 mg SC DAILY [facility] PRN Reason: Protocol Last Admin: 10/29/17 10:30 Dose: 40 mg Famotidine (Pepcid) 20 mg PO [facility] Last Admin: 10/29/17 21:34 Dose: 20 mg Folic Acid (Folic Acid) 1 mg PO DAILY [facility] Last Admin: 10/29/17 10:30 Dose: 1 mg Lorazepam (Ativan) 1 mg IVP Q2H PRN; Protocol PRN Reason: Anxiety Metoprolol Tartrate (Lopressor) 25 mg PO BID [facility] Last Admin: 10/29/17 17:14 Dose: Not Given Mirtazapine (Remeron) 15 mg PO HS [facility] Last Admin: 10/29/17 21:34 Dose: 15 mg Multivitamins (Thera Tab) 1 tab PO 0800 [facility] Last Admin: 10/30/17 07:57 Dose: 1 tab Nicotine (Nicoderm Cq) 1 patch TD DAILY [facility] Last Admin: 10/29/17 10:30 Dose: 1 patch Potassium Chloride (K-Dur 20 Meq Er Tab) 20 meq PO ONCE ONE Stop: 10/30/17 12:01 Thiamine HCl (Vitamin B1 Tab) 100 mg PO DAILY [facility] Last Admin: 10/29/17 10:30 Dose: 100 mg Ziprasidone (Geodon Inj) 20 mg IM Q12H PRN; Protocol PRN Reason: agitatoin/aggression Last Admin: 10/28/17 01:44 Dose: 20 mg - Labs Labs: 10/30/17 05:45 10/30/17 05:45 PT 11.6 SECONDS (9.4-12.5) 10/27/17 01:50 INR 1.02 (0.93-1.08) 10/27/17 01:50 APTT 31.2 Seconds (25.1-36.5) 10/27/17 01:50 - Constitutional Appears: No Acute Distress - Head Exam Head Exam: ATRAUMATIC, NORMAL INSPECTION, NORMOCEPHALIC - Eye Exam Eye Exam: EOMI, PERRL - ENT Exam Additional comments: poor dentation - Respiratory Exam Respiratory Exam: Clear to Ausculation Bilateral. absent: Rales, Rhonchi, Wheezes - Cardiovascular Exam Cardiovascular Exam: REGULAR RHYTHM, +S1, +S2 - GI/Abdominal Exam GI & Abdominal Exam: Soft, Normal Bowel Sounds. absent: Guarding, Rigid, Tenderness - Extremities Exam Extremities Exam: absent: Calf Tenderness, Pedal Edema - Neurological Exam Neurological Exam: Alert, Awake, Oriented x3 - Psychiatric Exam Psychiatric exam: Normal Affect, Normal Mood - Skin Skin Exam: Dry, Warm Assessment and Plan - Assessment and Plan (Free Text) Assessment: 52 year old male with past medical history of alcohol abuse who presented with depression and ?SI initially admitted under psychiatric unit. He underwent alcohol withdrawal / delirium and was transferred to telemetry unit. Patient currently undergoing etoh withdrawal treatment Plan: Alcohol Withdrawal Details: - Stable, afebrile - Last recorded CIWA was 2 - Psych consulted Plan: - Librium taper 25mg PO Q12H - Ativan 1mg Q2H prn agitation, not requiring medication overnight - CIWA, Seizure, Aspiration, Fall (high) protocols - Multivitamins, Thiamine, Folic acid - Geodon 20mg Q12H prn agitation - Regular diet Major Depressive Disorder - Continue home Remeron - Abilify 5mg PO HS - Psychiatry Consult: Dr. King Elevated LFTs: - AST/ALT trending down - History of alcohol abuse GERD - Continue home pepcid Hx Tobacco Abuse - Nicotine patch - Advised cessation Hx Alcohol Abuse - As above - Cessation education provided GI/DVT Prophylaxis - Pepcid/Lovenox Case and plan discussed with attending <Katie Mcallister - Last Filed: 10/31/17 14:34> Objective - Vital Signs/Intake and Output Vital Signs (last 24 hours): Temp Pulse Resp BP Pulse Ox 97.3 F L 89 18 117/50 L 97 10/31/17 12:00 10/31/17 14:00 10/31/17 12:00 10/31/17 12:00 10/31/17 06:00 Intake and Output: 10/31/17 10/31/17 06:59 18:59 Intake Total 480 Output Total 300 Balance 180 - Medications Medications: Current Medications Aripiprazole (Abilify) 5 mg PO HS [facility] Last Admin: 10/30/17 21:38 Dose: 5 mg Chlordiazepoxide (Librium) 25 mg PO DAILY [facility] PRN Reason: Protocol Enoxaparin Sodium (Lovenox) 40 mg SC DAILY [facility] PRN Reason: Protocol Last Admin: 10/31/17 09:09 Dose: 40 mg Famotidine (Pepcid) 20 mg PO HS [facility] Last Admin: 10/30/17 21:38 Dose: 20 mg Folic Acid (Folic Acid) 1 mg PO DAILY [facility] Last Admin: 10/31/17 09:06 Dose: 1 mg Lorazepam (Ativan) 1 mg IVP Q2H PRN; Protocol PRN Reason: Anxiety Last Admin: 10/30/17 21:49 Dose: 1 mg Metoprolol Tartrate (Lopressor) 25 mg PO BID [facility] Last Admin: 10/31/17 09:07 Dose: Not Given Mirtazapine (Remeron) 15 mg PO HS [facility] Last Admin: 10/30/17 21:38 Dose: 15 mg Multivitamins (Thera Tab) 1 tab PO 0800 [facility] Last Admin: 10/31/17 09:06 Dose: 1 tab Nicotine (Nicoderm Cq) 1 patch TD DAILY [facility] Last Admin: 10/31/17 09:12 Dose: Not Given Thiamine HCl (Vitamin B1 Tab) 100 mg PO DAILY [facility] Last Admin: 10/31/17 09:06 Dose: 100 mg Ziprasidone (Geodon Inj) 20 mg IM Q12H PRN; Protocol PRN Reason: agitatoin/aggression Last Admin: 10/28/17 01:44 Dose: 20 mg - Labs Labs: 10/30/17 05:45 10/30/17 05:45 PT 11.6 SECONDS (9.4-12.5) 10/27/17 01:50 INR 1.02 (0.93-1.08) 10/27/17 01:50 APTT 31.2 Seconds (25.1-36.5) 10/27/17 01:50 Attending/Attestation - Attestation I have personally seen and examined this patient.: Yes I have fully participated in the care of the patient.: Yes I have reviewed all pertinent clinical information, including history, physical exam and plan: Yes Notes (Text): 10/31/17 14:33 Medical record note made by the resident after discussion with my direction and input after the patient was personally seen and examined by me. I have reviewed the chart and agree that the record accurately reflects by personal performance of the history, physical exam, data review, and medical decision-making, in the course for the patient. I have also personally directed the plan of care 52 year old male with past medical history of alcohol abuse who presented with depression and ?SI initially admitted under psychiatric unit. He underwent alcohol withdrawal / delirium and was transferred to telemetry unit. Patient mental status is improved.Alcohol withdrawal are improving.LFT are coming down. He can be discharged back to Psychiatry in 24 hour.
[2017-10-30] MEDS: Enoxaparin 40 mg Syringe SC SCH (10:33)
[2017-10-30] MEDS ORDERED: Potassium Chloride 20 mEq ER Tab PO ONE (12:00)
--- NOTE | 2017-10-30 21:26 | PN ---
DATE: 10/30/2017 SUBJECTIVE: This patient was followed up at afternoon on the medical site. Of note, the patient was transferred from the Psychiatric Inpatient Unit to the medical site for delirium tremens. Over the weekend, the patient had episodes of agitation as well as restlessness and tremor, at times confused. The patient does not remember this job specification writer. The patient said that this job specification writer promised to let him go today, but it is not correct. This job specification writer did not see the patient today and moreover, did not promise to let him go. The patient reported that he feels better, at the same time appears to be confused. The patient reported that he wants to go home. He does not want to go back to the Psychiatric Inpatient Unit. The patient reported that his sister Dodie Ordonez wants to take him into her house, we will confirm that information. Dodie Ordonez phone number is [phone]. Besides that, vital signs are stable. Temperature 97.7, pulse is 89, blood pressure 130/56, respirations 20. MEDICATIONS: Reviewed. The patient is on Abilify 5 mg at the nighttime, Librium 25 mg twice a day, Lovenox, Pepcid, folic acid, Ativan 1 mg IV push every 2 hours as needed for withdrawals, Lopressor 25 mg twice a day, Remeron 15 mg at the nighttime, multivitamins, Nicoderm, thiamine, and Geodon 20 mg IM, last dose was on 10/28/2017. LABORATORY DATA: Reviewed. Most recent from today. Hemoglobin and hematocrit 12.3 and 37.5. Coagulation reviewed. Chemistry reviewed. AST and ALT trending down. Toxicology reviewed, benzodiazepines positive. MENTAL STATUS EXAMINATION: The patient presented to be alert but confused. The patient does not remember this job specification writer by name. Speech was at times incoherent. Mood described as "fine". Affect was constricted. Thought process seems to be disorganized and confused. Thought content, the patient has episodes of confusion and agitation and required to have IM medication, last time was on 10/28/2017. Insight and judgment seem to be limited. Impulses are unpredictable. IMPRESSION: As per history, bipolar disorder, alcohol use disorder, alcohol withdrawal delirium is better, delirium tremens is improving. PLAN: Continue current management. Continue current medication. The patient is on Librium. The patient is on Remeron, Lopressor, Ativan, folic acid, and Abilify. Please continue that. We will follow up and advise accordingly. This job specification writer will call to the patient's sister to double check if it is correct information that the patient will stay with her, social service evaluation. Should you have any questions, give me a call back. The patient is high risk of elopement and the patient is still in delirium stage. We will continue on one-to-one observation. Thank you very much for letting me participate in care of your patient. Christine Mosqueda MD MTDGiorgio
[2017-10-31] MEDS ORDERED: Alum-Mag Hydrox-Simethicone Susp (30 mL) PO ONE (04:23)
[2017-10-31 06:23] VITALS: O2SAT 97
[2017-10-31] MEDS: Multivitamin Therapeutic Tab PO SCH (09:06)
[2017-10-31] MEDS: Enoxaparin 40 mg Syringe SC SCH (09:09)
[2017-10-31 12:19] VITALS: RESP 18
--- NOTE | 2017-10-31 13:29 | CP.PCM.PN ---
<WilliamaylaMynor - Last Filed: 10/31/17 13:26> Subjective - Date & Time of Evaluation Date of Evaluation: 10/31/17 Time of Evaluation: 13:26 - Subjective Subjective: Patient seen and evaluated this AM. No acute events reported overnight. Patient still with 1:1 observation. Patient reports improved symptoms of withdrawal and indicates improved tremors/agitation. Patient reports he feels like going home. Patient denies chest pain, shortness of breath, abdominal pain, nausea, vomiting , fever, chills. Objective - Vital Signs/Intake and Output Vital Signs (last 24 hours): Temp Pulse Resp BP Pulse Ox 97.3 F L 75 18 117/50 L 97 10/31/17 12:00 10/31/17 12:00 10/31/17 12:00 10/31/17 12:00 10/31/17 06:00 Intake and Output: 10/31/17 10/31/17 06:59 18:59 Intake Total 480 Output Total 300 Balance 180 - Medications Medications: Current Medications Aripiprazole (Abilify) 5 mg PO [facility] Last Admin: 10/30/17 21:38 Dose: 5 mg Chlordiazepoxide (Librium) 25 mg PO BID [facility] PRN Reason: Protocol Last Admin: 10/31/17 09:06 Dose: 25 mg Enoxaparin Sodium (Lovenox) 40 mg SC DAILY [facility] PRN Reason: Protocol Last Admin: 10/31/17 09:09 Dose: 40 mg Famotidine (Pepcid) 20 mg PO HS [facility] Last Admin: 10/30/17 21:38 Dose: 20 mg Folic Acid (Folic Acid) 1 mg PO DAILY [facility] Last Admin: 10/31/17 09:06 Dose: 1 mg Lorazepam (Ativan) 1 mg IVP Q2H PRN; Protocol PRN Reason: Anxiety Last Admin: 10/30/17 21:49 Dose: 1 mg Metoprolol Tartrate (Lopressor) 25 mg PO BID [facility] Last Admin: 10/31/17 09:07 Dose: Not Given Mirtazapine (Remeron) 15 mg PO HS [facility] Last Admin: 10/30/17 21:38 Dose: 15 mg Multivitamins (Thera Tab) 1 tab PO 0800 [facility] Last Admin: 10/31/17 09:06 Dose: 1 tab Nicotine (Nicoderm Cq) 1 patch TD DAILY [facility] Last Admin: 10/31/17 09:12 Dose: Not Given Thiamine HCl (Vitamin B1 Tab) 100 mg PO DAILY [facility] Last Admin: 10/31/17 09:06 Dose: 100 mg Ziprasidone (Geodon Inj) 20 mg IM Q12H PRN; Protocol PRN Reason: agitatoin/aggression Last Admin: 10/28/17 01:44 Dose: 20 mg - Labs Labs: 10/30/17 05:45 10/30/17 05:45 PT 11.6 SECONDS (9.4-12.5) 10/27/17 01:50 INR 1.02 (0.93-1.08) 10/27/17 01:50 APTT 31.2 Seconds (25.1-36.5) 10/27/17 01:50 - Constitutional Appears: Non-toxic - Head Exam Head Exam: ATRAUMATIC, NORMAL INSPECTION, NORMOCEPHALIC - Eye Exam Eye Exam: EOMI, PERRL - ENT Exam Additional comments: Poor dentititon - Respiratory Exam Respiratory Exam: Clear to Ausculation Bilateral, NORMAL BREATHING PATTERN. absent: Rales, Rhonchi, Wheezes - Cardiovascular Exam Cardiovascular Exam: REGULAR RHYTHM, +S1, +S2 - GI/Abdominal Exam GI & Abdominal Exam: Soft, Normal Bowel Sounds. absent: Firm, Guarding, Rigid, Tenderness - Extremities Exam Extremities Exam: absent: Calf Tenderness, Normal Inspection, Pedal Edema - Neurological Exam Neurological Exam: Alert, Awake, Normal Gait, Oriented x3 Neuro motor strength exam: Left Upper Extremity: 5, Right Upper Extremity: 5, Left Lower Extremity: 5, Right Lower Extremity: 5 Additional comments: repetitive tongue movement action noted, rolling of tongue - Psychiatric Exam Psychiatric exam: Normal Mood. absent: Agitated, Anxious, Depressed - Skin Skin Exam: Dry, Warm Assessment and Plan - Assessment and Plan (Free Text) Assessment: 52 year old male with past medical history of alcohol abuse who presented with depression and ?SI initially admitted under psychiatric unit. He underwent alcohol withdrawal/delirium and was transferred to telemetry unit. Patient without withdrawal symptoms for 24 hours, patient to be dc from telemetry. Psych evaluation with recommendation for continued therapy in inpatient psych unit. Plan: Alcohol Withdrawal Details: - Stable, afebrile, VSS - CIWA 0 this AM - Psych consulted and following Plan: - Librium taper 25mg PO Daily - Ativan 1mg Q2H prn agitation, not requiring medication overnight - CIWA, Seizure, Aspiration, Fall (high) protocols - Multivitamins, Thiamine, Folic acid - Geodon 20mg Q12H prn agitation - Regular diet Major Depressive Disorder - Continue home Remeron - Abilify 5mg PO HS - Psychiatry Consult: Dr. King Elevated LFTs: - AST/ALT trending down - History of alcohol abuse GERD - Continue home pepcid Hx Tobacco Abuse - Nicotine patch - Advised cessation Hx Alcohol Abuse - As above - Cessation education provided GI/DVT Prophylaxis - Pepcid/Lovenox Dispo: Patient ETOH withdrawal symptoms are under control and he is hemodynamically stable to be medically cleared for further workup per psychiatry. Will sign off on patient at this time. Please re-consult as necessary. Case and plan discussed with attending Stephen Alvares PGY-1 <Katie Mcallister - Last Filed: 10/31/17 14:36> Objective - Vital Signs/Intake and Output Vital Signs (last 24 hours): Temp Pulse Resp BP Pulse Ox 97.3 F L 89 18 117/50 L 97 10/31/17 12:00 10/31/17 14:00 10/31/17 12:00 10/31/17 12:00 10/31/17 06:00 Intake and Output: 10/31/17 10/31/17 06:59 18:59 Intake Total 480 Output Total 300 Balance 180 - Medications Medications: Current Medications Aripiprazole (Abilify) 5 mg PO HS [facility] Last Admin: 10/30/17 21:38 Dose: 5 mg Chlordiazepoxide (Librium) 25 mg PO DAILY [facility] PRN Reason: Protocol Enoxaparin Sodium (Lovenox) 40 mg SC DAILY [facility] PRN Reason: Protocol Last Admin: 10/31/17 09:09 Dose: 40 mg Famotidine (Pepcid) 20 mg PO HS [facility] Last Admin: 10/30/17 21:38 Dose: 20 mg Folic Acid (Folic Acid) 1 mg PO DAILY [facility] Last Admin: 10/31/17 09:06 Dose: 1 mg Lorazepam (Ativan) 1 mg IVP Q2H PRN; Protocol PRN Reason: Anxiety Last Admin: 10/30/17 21:49 Dose: 1 mg Metoprolol Tartrate (Lopressor) 25 mg PO BID [facility] Last Admin: 10/31/17 09:07 Dose: Not Given Mirtazapine (Remeron) 15 mg PO HS [facility] Last Admin: 10/30/17 21:38 Dose: 15 mg Multivitamins (Thera Tab) 1 tab PO 0800 [facility] Last Admin: 10/31/17 09:06 Dose: 1 tab Nicotine (Nicoderm Cq) 1 patch TD DAILY [facility] Last Admin: 10/31/17 09:12 Dose: Not Given Thiamine HCl (Vitamin B1 Tab) 100 mg PO DAILY [facility] Last Admin: 10/31/17 09:06 Dose: 100 mg Ziprasidone (Geodon Inj) 20 mg IM Q12H PRN; Protocol PRN Reason: agitatoin/aggression Last Admin: 10/28/17 01:44 Dose: 20 mg - Labs Labs: 10/30/17 05:45 10/30/17 05:45 PT 11.6 SECONDS (9.4-12.5) 10/27/17 01:50 INR 1.02 (0.93-1.08) 10/27/17 01:50 APTT 31.2 Seconds (25.1-36.5) 10/27/17 01:50 Attending/Attestation - Attestation I have personally seen and examined this patient.: Yes I have fully participated in the care of the patient.: Yes I have reviewed all pertinent clinical information, including history, physical exam and plan: Yes Notes (Text): 10/31/17 14:35 Medical record note made by the resident after discussion with my direction and input after the patient was personally seen and examined by me. I have reviewed the chart and agree that the record accurately reflects by personal performance of the history, physical exam, data review, and medical decision-making, in the course for the patient. I have also personally directed the plan of care 52 year old male with past medical history of alcohol abuse who presented with depression and ?Suicidal ideation.He was initially admitted under psychiatric unit. He underwent alcohol withdrawal / delirium and was transferred to telemetry unit. Patient mental status is improved.Alcohol withdrawal are improved.LFT are coming down.Case was discussed with Psychiatry.He will be discharged back to Psychiatric floor.
[2017-10-31 17:14] VITALS: BP 120/55
[2017-10-31 17:51] VITALS: PULSE 72; TEMP 97.8
--- NOTE | 2017-10-31 20:14 | PN ---
DATE: 10/31/2017 SUBJECTIVE: Patient was followed up today. Patient presented to be confused, at times loud, unsteady gait, upper extremities tremor. Patient keeps taking out of his tongue, reported that he cannot control it. Patient wanted to be discharged as soon as possible. At the same time, patient reported that his family is going to take him. Multiple attempts by medical team was made to call to his sister as well as his brother, but nobody is available. Patient has no safe plan to go. At the same time, patient is very confused, irrational, loud, was threatening to leave the hospital and act out, but apparently later on, patient is willing to stay in the hospital and wanted to continue his treatment into the Psychiatric Inpatient Unit. VITAL SIGNS: Stable. Temperature 97.3, pulse is 87, blood pressure 117/50, respiration 18. MEDICATIONS: Reviewed. Patient is on Abilify, Librium 25 mg daily, Lovenox, Pepcid, folic acid, Ativan 1 mg IV push every 2 hours p.r.n., patient got 1 mg yesterday; Lopressor as well as Remeron 15 mg, multivitamins, thiamine, and Geodon. Last injection of Geodon was on . LABORATORY DATA: Labs reviewed. Hemoglobin and hematocrit 12.3 and 37.5 from yesterday. MENTAL STATUS EXAMINATION: Patient confused. Has intermittent eye contact, angry and irritable. Mood described "I want to go home, but I will stay with you to complete my treatment." Affect was irritable, constricted and angry. Impulses are not predictable. Insight and judgment limited. Thought process: Circumstantial. Thought content: Patient is obviously confused at times, still possibly withdrawing from the benzodiazepines. PLAN: This senior mortgage underwriter offered patient admission to the Psychiatric Inpatient Unit. Patient accepted that offer. We will increase the Abilify for confusion as well as we will continue Librium tapering dose, Remeron. We will call for family meeting. Patient meets the criteria to go to the Psychiatric Inpatient Unit. Patient was on one-to-one observation, still high elopement risk. This senior mortgage underwriter will discontinue one-to-one upon admission to the Psychiatric Inpatient Unit because patient will be in the locked unit and supervised every 15-minutes. We will monitor patient closely. Abilify will be increased, Librium twice a day 25 mg. Social work evaluation. Patient will be admitted to the Psychiatric Inpatient Unit for further evaluation and stabilization. Christine Mosqueda MD
== END 2017-10-31 18:47 | DRG 897 ==
LOC: ED 01:00 → ERH 02:22 → 2RNO 04:46 → OBSVTOIN 09:22 → 2RSO 10-30 22:45
PROVIDERS: ADMIT Hospitalist; ATTEND Internal Medicine
DX: F10.231 Alcohol dependence with withdrawal delirium (principal); R45.851 Suicidal ideations; F31.9 Bipolar disorder, unspecified; K21.9 Gastro-esophageal reflux disease without esophagitis; D72.829 Elevated white blood cell count, unspecified; Z78.1 Physical restraint status; Z87.891 Personal history of nicotine dependence; R40.2412 Glasgow coma scale score 13-15, at arrival to emergency department; R00.0 Tachycardia, unspecified

== ENCOUNTER 2017-10-31 18:35 | Inpatient (IN) | payer MEDICARE, MEDICAID, OTHER ==
[2017-10-31] MEDS ORDERED: Magnesium Hydroxide Susp 30 ml UD PO PRN (19:45)
[2017-10-31] MEDS ORDERED: Alum-Mag Hydrox-Simethicone Susp (30 mL) PO PRN (19:45)
--- NOTE | 2017-10-31 23:36 | PCM.BM ---
<BradleyEzekiel - Last Filed: 10/31/17 23:33> Treatment Plan Problems - Problems identified on initial assessmt Knowledge Deficit: Alcohol Use Date Initiated: 10/31/17 Time Initiated: :30 Assessment reference: NA Status: Active Priority: 2 Ineffective Coping Date Initiated: 10/31/17 Time Initiated: 19:30 Assessment reference: NA Status: Active Priority: 3 Hopelessness/Helplessness Date Initiated: 10/31/17 Time Initiated: 19:30 Assessment reference: NA Status: Active Priority: 4 Denial Date Initiated: 10/31/17 Time Initiated: 19:30 Assessment reference: NA Status: Active Priority: 1 Feelings of Worthlessness Date Initiated: 10/31/17 Time Initiated: :30 Assessment reference: NA Status: Active Priority: 5 Treatment assets and liabiliti Patient Assests: cooperative, ADL independent, negotiates basic needs, cognitively intact Patient Liabilities: live alone, financial problems, poor support system, substance abuse, medical problems - Milieu Protocol Maintain good personal hygiene: daily Encourage regular showers, every shift Remind patient to perform daily oral care, every shift Assist patient to perform ADL's Maintain personal safety: every shift Educate patient to report safety concerns to staff, every shift Monitor environment for contraband/sharps Medication safety: Monitor for expected outcome, potential side effects: every shift, Assess barriers to learning: every shift, Assess readiness for medication education: every shift Family Contact - Goals for Treatment Patient goals for treatment: alcohol free Discharge/Continuing Care - Education Needs Education Needs: Patient Medication, Patient Diagnosis/Disease Process, Patient Coping Skills, Patient Anger Management skills, Patient Placement options, Patient Community resources, Patient Activities of Daily Living, Patient Pain, Patient Nutrition, Patient Uses of Medical Equipment, Patient Health Practices/ Safety, Patient Personal Hygiene/Grooming, Patient Aftercare Safety Plan - Discharge Discharge Criteria: Tolerates medication w/o severe side effects <Christine Mosqueda - Last Filed: 11/01/17 15:32> - Diagnosis (1) Bipolar II disorder Status: Acute Interventions: 11/01/17 15:33 Psychoeducation Psychopharmacology/adjustment of medications as needed/ monitoring possible side effects Monitor blood level of mood stabilizers Evaluate pt on daily basis Compliance with medications and follow up appointments Suicide and homicide risk assessment and prevention, coping strategies, safety plan Relapse prevention Reduction of symptoms Improve functional status Family involvement As outpatient: cognitive behavioral therapy (2) Alcohol dependence Status: Acute Interventions: 11/01/17 15:33 Monitoring withdrawal symptoms Medical detoxification Pharmacotherapy for alcohol/benzos/opioid dependence Maintaining sobriety Relapse prevention Possible rehabilitation Motivational interviewing 12-step programs: AA meetings <Nasra Gregory Y - Last Filed: 11/01/17 16:08> Family Contact Family involvement: Family/SO is involved Family contact: Patient agrees to contact Family contact name: Vick Montiel, sister Family contacted how many times per week?: 2
[2017-11-01 00:25] VITALS: O2SAT 95
[2017-11-01 06:56] VITALS: RESP 20
--- NOTE | 2017-11-01 07:48 | CP.PCM.CON ---
<Guillermina Hargrove - Last Filed: 11/01/17 13:56> History of Present Illness - History of Present Illness History of Present Illness: Medicine Consult Note 52yo male PMHx ETOH abuse, depression, GERD recently transferred back to psych after needing admission on the medicine floors for EtOH withdrawal. Medicine consulted for medical clearance. Patient was sitting in his chair comfortably when I saw him. Denied any acute complaints of fever, chills, headache, dizziness, chest pain, palpitations, SOB, cough, abd pain, nausea, vomiting, bowel/bladder complaints, pain/swelling in his legs, feelings of tremulousness/ EtOH withdrawal. Patient reported he is hungry and eager to leave today. PMHx: ETOH abuse, depression, GERD PSurgHx: Denies SocHx: 1/2 pack of cigarettes; 1/2 pint of vodka per day. Denies illicit FamHx: noncontributory Meds: reviewed ALL: NKDA Review of Systems - Review of Systems All systems: reviewed and no additional remarkable complaints except - Constitutional Constitutional: As Per HPI. absent: Chills, Fever - EENT Eyes: As Per HPI. absent: Blurred Vision Ears: As Per HPI. absent: Dizziness Nose/Mouth/Throat: As Per HPI. absent: Sore Throat - Cardiovascular Cardiovascular: As Per HPI. absent: Chest Pain, Dyspnea, Edema, Palpitations - Respiratory Respiratory: As Per HPI. absent: Cough, Dyspnea, Chest Congestion - Gastrointestinal Gastrointestinal: As Per HPI. absent: Abdominal Pain, Constipation, Diarrhea, Nausea, Vomiting - Genitourinary Genitourinary: As Per HPI. absent: Dysuria, Flank Pain - Musculoskeletal Musculoskeletal: As Per HPI. absent: Back Pain, Numbness, Tingling - Integumentary Integumentary: As Per HPI, Dry Skin. absent: Rash - Neurological Neurological: As Per HPI. absent: Dizziness, Headaches - Endocrine Endocrine: As Per HPI. absent: Polydipsia, Polyphagia, Polyuria - Hematologic/Lymphatic Hematologic: As Per HPI. absent: Easy Bleeding, Easy Bruising, Lymphadenopathy Past Patient History - Infectious Disease Hx of Infectious Diseases: None - Past Social History Smoking Status: Smoker Currrent Status Unknown - CARDIAC Hx Cardiac Disorders: No Hx Angina: No Hx Cardia Arrhythmia: No Hx Circulatory Problems: No Hx Congestive Heart Failure: No Hx Heart Murmur: No Hx Heart Transplant: No Hx Hypercholesterolemia: No Hx Hypertension: No Hx Internal Defibrillator: No Hx Mitral Valve Prolapse: No Hx Pacemaker: No Hx Peripheral Edema: No Hx Peripheral Vascular Disease: No - PULMONARY Hx Respiratory Disorders: No - NEUROLOGICAL Hx Neurological Disorder: No - HEENT Hx HEENT Problems: No - RENAL Hx Chronic Kidney Disease: No - ENDOCRINE/METABOLIC Hx Endocrine Disorders: No - HEMATOLOGICAL/ONCOLOGICAL Hx Blood Disorders: No - INTEGUMENTARY Hx Dermatological Problems: No - MUSCULOSKELETAL/RHEUMATOLOGICAL Hx Musculoskeletal Disorders: No Hx Falls: No - GASTROINTESTINAL Hx Gastrointestinal Disorders: No - GENITOURINARY/GYNECOLOGICAL Hx Genitourinary Disorders: No - PSYCHIATRIC Hx Depression: Yes Hx Substance Use: Yes - SURGICAL HISTORY Hx Surgeries: Yes Hx Cardiac Catheterization: No Hx Coronary Stent: No Other/Comment: partial nephrectomy - ANESTHESIA Hx Anesthesia: No Meds Allergies/Adverse Reactions: Allergies Allergy/AdvReac Type Severity Reaction Status Date / Time No Known Allergies Allergy Verified 10/31/17 21:04 - Medications Medications: Current Medications Acetaminophen (Tylenol 325mg Tab) 650 mg PO Q6H PRN PRN Reason: Pain, moderate (4-7) Al Hydrox/Mg Hydrox/Simethicone (Maalox Plus 30 Ml) 30 ml PO DAILY PRN PRN Reason: Indigestion / Heartburn Aripiprazole (Abilify) 5 mg PO AMHS [facility] Last Admin: 10/31/17 21:41 Dose: 5 mg Chlordiazepoxide (Librium) 25 mg PO BID [facility] PRN Reason: Protocol Last Admin: 10/31/17 20:19 Dose: 25 mg Famotidine (Pepcid) 20 mg PO HS [facility] Folic Acid (Folic Acid) 1 mg PO DAILY [facility] Magnesium Hydroxide (Milk Of Magnesia) 30 ml PO DAILY PRN PRN Reason: Constipation Metoprolol Tartrate (Lopressor) 25 mg PO BID [facility] Mirtazapine (Remeron) 15 mg PO HS [facility] Last Admin: 10/31/17 21:41 Dose: 15 mg Multivitamins (Thera Tab) 1 tab PO 0800 [facility] Nicotine (Nicoderm Cq) 1 patch TD DAILY [facility] Thiamine HCl (Vitamin B1 Tab) 100 mg PO DAILY [facility] Ziprasidone (Geodon Inj) 20 mg IM Q12 PRN; Protocol PRN Reason: agitation/agression Physical Exam - Constitutional Appears: Non-toxic, No Acute Distress - Head Exam Head Exam: ATRAUMATIC, NORMAL INSPECTION, NORMOCEPHALIC - Eye Exam Eye Exam: EOMI, Normal appearance, PERRL. absent: Conjunctival injection, Scleral icterus Pupil Exam: NORMAL ACCOMODATION - ENT Exam ENT Exam: Mucous Membranes Moist - Neck Exam Neck exam: Positive for: Full Rom, Normal Inspection - Respiratory Exam Respiratory Exam: Clear to Auscultation Bilateral, NORMAL BREATHING PATTERN. absent: Accessory Muscle Use, Rales, Rhonchi, Wheezes, Respiratory Distress - Cardiovascular Exam Cardiovascular Exam: REGULAR RHYTHM, RRR, +S1, +S2. absent: Systolic Murmur - GI/Abdominal Exam GI & Abdominal Exam: Normal Bowel Sounds, Soft. absent: Firm, Guarding, Rigid, Tenderness - Rectal Exam Rectal Exam: Deferred - Extremities Exam Extremities exam: Positive for: normal capillary refill, normal inspection, pedal pulses present. Negative for: pedal edema - Neurological Exam Neurological exam: Alert, CN II-XII Intact, Oriented x3 - Psychiatric Exam Psychiatric exam: Normal Affect, Normal Mood - Skin Skin Exam: Dry, Intact Results - Vital Signs Recent Vital Signs: Last Vital Signs Temp 97.4 F L 11/01/17 06:55 Pulse 76 11/01/17 06:55 Resp 20 11/01/17 06:55 BP 127/97 H 11/01/17 06:55 Pulse Ox 95 10/31/17 19:30 Assessment & Plan - Assessment and Plan (Free Text) Assessment: 52yo male PMHx ETOH abuse, depression, GERD recently transferred back to psych after needing admission on the medicine floors for EtOH withdrawal. Medicine consulted for medical clearance Plan: EtOH abuse -CIWA 0 -Folic acid, multivitamin, thiamine daily -Alcohol/drug abuse counseling -f/u CMP, Mg, and Phos this AM Tobacco abuse -Smoking cessation counseling -Nicoderm patch HTN -Lopressor 25mg po bid Hx of GERD -Pepcid 20mg po bid Hx of depression -managed as per psych Medicine will sign off at this time Please reconsult if needed Discussed with Dr. Esvin Hargrove PGY2 <Katie Mcallister - Last Filed: 11/01/17 15:10> Meds - Medications Medications: Current Medications Acetaminophen (Tylenol 325mg Tab) 650 mg PO Q6H PRN PRN Reason: Pain, moderate (4-7) Al Hydrox/Mg Hydrox/Simethicone (Maalox Plus 30 Ml) 30 ml PO DAILY PRN PRN Reason: Indigestion / Heartburn Aripiprazole (Abilify) 5 mg PO AMHS [facility] Last Admin: 11/01/17 09:39 Dose: 5 mg Chlordiazepoxide (Librium) 25 mg PO BID [facility] PRN Reason: Protocol Last Admin: 11/01/17 09:39 Dose: 25 mg Famotidine (Pepcid) 20 mg PO DAILY [facility] Last Admin: 11/01/17 09:41 Dose: 20 mg Folic Acid (Folic Acid) 1 mg PO DAILY [facility] Last Admin: 11/01/17 09:39 Dose: 1 mg Magnesium Hydroxide (Milk Of Magnesia) 30 ml PO DAILY PRN PRN Reason: Constipation Metoprolol Tartrate (Lopressor) 25 mg PO BID [facility] Last Admin: 11/01/17 09:40 Dose: 25 mg Mirtazapine (Remeron) 15 mg PO HS [facility] Last Admin: 10/31/17 21:41 Dose: 15 mg Multivitamins (Thera Tab) 1 tab PO 0800 [facility] Last Admin: 11/01/17 09:39 Dose: 1 tab Nicotine (Nicoderm Cq) 1 patch TD DAILY [facility] Last Admin: 11/01/17 09:41 Dose: 1 patch Thiamine HCl (Vitamin B1 Tab) 100 mg PO DAILY [facility] Last Admin: 11/01/17 09:41 Dose: 100 mg Ziprasidone (Geodon Inj) 20 mg IM Q12 PRN; Protocol PRN Reason: agitation/agression Results - Vital Signs Recent Vital Signs: Last Vital Signs Temp 97.4 F L 11/01/17 06:55 Pulse 76 11/01/17 09:40 Resp 20 11/01/17 06:55 BP 127/97 H 11/01/17 09:40 Pulse Ox 95 10/31/17 19:30 Attending/Attestation - Attestation I have personally seen and examined this patient.: Yes I have fully participated in the care of the patient.: Yes I have reviewed all pertinent clinical information: Yes Notes (Text): 11/01/17 15:08 Medical record note made by the resident after discussion with my direction and input after the patient was personally seen and examined by me. I have reviewed the chart and agree that the record accurately reflects by personal performance of the history, physical exam, data review, and medical decision-making, in the course for the patient. I have also personally directed the plan of care 52 year old male with past medical history of alcohol abuse who presented with depression and ?Suicidal ideation.He was initially admitted under psychiatric unit. He underwent alcohol withdrawal / delirium and was transferred to telemetry unit. Patient mental status and Alcohol withdrawal improved and he was transfered back to Psychiatry.LFT are coming down.There is no active medical issue at this time.We will sign off. Issue of ongoing alcohol abuse was discussed in detail with him. Prognosis is guarded.
[2017-11-01] MEDS: Multivitamin Therapeutic Tab PO SCH (09:39)
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
[2017-11-02 07:07] VITALS: BP 109/69; PULSE 71; TEMP 97.3
[2017-11-02] MEDS: Multivitamin Therapeutic Tab PO SCH (08:45)
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
== END 2017-11-02 12:24 | disposition left against medical advice (07) | DRG 885 ==
LOC: PSYC 18:35
PROVIDERS: ADMIT Psychiatry & Neurology Psychiatry; ATTEND Psychiatry & Neurology Psychiatry
PROC: GZ3ZZZZ Medication Management (ICD-10-PCS; principal; 2017-10-31)
DX: F31.81 Bipolar II disorder (principal); F10.230 Alcohol dependence with withdrawal, uncomplicated; I10 Essential (primary) hypertension; E34.3 Short stature due to endocrine disorder; K21.9 Gastro-esophageal reflux disease without esophagitis; F17.210 Nicotine dependence, cigarettes, uncomplicated; Z91.14 Patient's other noncompliance with medication regimen; Z90.5 Acquired absence of kidney; Z81.8 Family history of other mental and behavioral disorders